=== PATIENT | female | born 1980 | race Caucasian/White ===

== ENCOUNTER 2016-09-21 11:30 | Emergency (ER) | payer MEDICAID ==
[2016-09-21 11:38] VITALS: BP 109/72
[2016-09-21] MEDS ORDERED: NORMAL SALINE 1000 ML 1,000 ML IV ONE (12:06)
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
[2016-09-21] MEDS ORDERED: OXYCODONE-ACETAMINOPHEN 5-325 MG TABLET PO ONE (12:44)
[2016-09-21] MEDS ORDERED: CEFTRIAXONE RTU 1 GM/D5W 50 ML IV ONE (12:44)
[2016-09-21] MEDS ORDERED: AZITHROMYCIN 250 MG TABLET PO ONE (12:44)
[2016-09-21 12:55] LABS: ABSOLUTE EOSINOPHILS # (AUTO) 0.3 10^3/uL (0.0-0.6); ABSOLUTE LYMPHOCYTES (AUTO) 1.5 10^3/uL (0.5-4.7); ABSOLUTE MONOCYTES (AUTO) 0.6 10^3/uL (0.1-1.4); ABSOLUTE NEUT (AUTO) 5.7 10^3/uL (1.7-8.2); BASOPHILS % (AUTO) 0.5 % (0-2); EOSINOPHILS % (AUTO) 3.3 % (0-6); HEMATOCRIT 36.8 % (36.0-47.0); HEMOGLOBIN 12.1 g/dL (12.0-15.5); HGB HCT DIFFERENCE -0.5; LYMPHOCYTES % (AUTO) 18.9 % (13-45); MEAN CORPUSCULAR HEMOGLOBIN 30.1 pg (27.0-33.4); MEAN CORPUSCULAR HGB CONC 32.8 g/dL (32.0-36.0); MEAN CORPUSCULAR VOLUME 92 fl (80-97); RED BLOOD COUNT 4.01 10^6/uL (3.72-5.28); RED CELL DISTRIBUTION WIDTH 13.3 % (11.5-14.0); SEGMENTED NEUTROPHILS % (AUTO) 70.3 % (42-78); WHITE BLOOD COUNT 8.1 10^3/uL (4.0-10.5)
[2016-09-21 13:11] LABS: APPEARANCE,URINE TURBID; BILIRUBIN,URINE NEGATIVE (NEGATIVE); GLUCOSE, URINE NEGATIVE (NEGATIVE); KETONES,URINE NEGATIVE (NEGATIVE); LEUKOCYTE ESTERASE,URINE LARGE (NEGATIVE); NITRITE,URINE POSITIVE (NEGATIVE); PROTEIN,URINE 30 mg/dL (NEGATIVE); URINE SPECIFIC GRAVITY 1.014
[2016-09-21 13:12] LABS: ALANINE AMINOTRANSFERASE 58 U/L (9-52); ALBUMIN 3.6 g/dL (3.5-5.0); ALKALINE PHOSPHATASE 79 U/L (38-126); ANION GAP 11 (5-19); ASPARTATE AMINO TRANSFERASE 62 U/L (14-36); BILIRUBIN,DIRECT 0.3 mg/dL (0.0-0.4); BILIRUBIN,TOTAL 0.3 mg/dL (0.2-1.3); BLOOD UREA NITROGEN 10 mg/dL (7-20); CALCIUM 9.2 mg/dL (8.4-10.2); CARBON DIOXIDE 25 mmol/L (22-30); CHLORIDE 107 mmol/L (98-107); CREATININE RESULT 0.72 mg/dL (0.52-1.25); GLUCOSE 94 mg/dL (75-110); POTASSIUM 4.2 mmol/L (3.6-5.0); SODIUM 142.9 mmol/L (137-145); TOTAL PROTEIN 6.2 g/dL (6.3-8.2)
[2016-09-21 14:21] LABS: CHLAM PCR NOT DETECTED (NOT DETECT)
[2016-09-21] MEDS ORDERED: PHENAZOPYRIDINE HCL 200 MG TABLET PO ONE (14:25)
[2016-09-21] MEDS ORDERED: SULFAMETHOXAZOLE/TRIMETHOPRIM 800-160 MG TABLET PO ONE (14:25)
== END 2016-09-21 15:00 | disposition home or self-care (01) ==
LOC: ER 11:30
DX: N39.0 Urinary tract infection, site not specified (principal); N89.8 Other specified noninflammatory disorders of vagina; M54.5 Low back pain; R30.0 Dysuria; F17.200 Nicotine dependence, unspecified, uncomplicated
CPT/HCPCS: 99283; 96374; 36415; 87040; 87086; 87210; 85025; 87088; 80053; 81001; 87186; 87491; 87591; Q0144; J3490 ×2; J7030; J0696

== ENCOUNTER 2016-10-05 17:09 | Emergency (ER) | payer MEDICAID ==
[2016-10-05] MEDS ORDERED: KETOROLAC TROMETHAMINE 60 MG/2 ML SDV IM ONE (19:41)
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
[2016-10-05] MEDS ORDERED: PROMETHAZINE HCL 25 MG TABLET PO ONE (19:47)
[2016-10-05 20:14] LABS: ABSOLUTE BASOPHILS # (AUTO) 0.1 10^3/uL (0.0-0.2); ABSOLUTE EOSINOPHILS # (AUTO) 0.4 10^3/uL (0.0-0.6); ABSOLUTE LYMPHOCYTES (AUTO) 2.1 10^3/uL (0.5-4.7); ABSOLUTE MONOCYTES (AUTO) 0.5 10^3/uL (0.1-1.4); ABSOLUTE NEUT (AUTO) 6.8 10^3/uL (1.7-8.2); BASOPHILS % (AUTO) 0.8 % (0-2); EOSINOPHILS % (AUTO) 3.8 % (0-6); HEMATOCRIT 42.1 % (36.0-47.0); HEMOGLOBIN 13.5 g/dL (12.0-15.5); HGB HCT DIFFERENCE -1.6; LYMPHOCYTES % (AUTO) 21.3 % (13-45); MEAN CORPUSCULAR HEMOGLOBIN 29.9 pg (27.0-33.4); MEAN CORPUSCULAR VOLUME 94 fl (80-97); MONOCYTES % (AUTO) 5.1 % (3-13); RED CELL DISTRIBUTION WIDTH 13.3 % (11.5-14.0); WHITE BLOOD COUNT 9.9 10^3/uL (4.0-10.5)
[2016-10-05 20:19] LABS: APPEARANCE,URINE SLIGHTLY-CLOUDY; BILIRUBIN,URINE NEGATIVE (NEGATIVE); GLUCOSE, URINE NEGATIVE (NEGATIVE); KETONES,URINE NEGATIVE (NEGATIVE); LEUKOCYTE ESTERASE,URINE SMALL (NEGATIVE); NITRITE,URINE POSITIVE (NEGATIVE); PROTEIN,URINE NEGATIVE (NEGATIVE); URINE SPECIFIC GRAVITY 1.005; UROBILINOGEN,URINE NEGATIVE mg/dL (<2.0)
[2016-10-05 20:30] LABS: ALANINE AMINOTRANSFERASE 36 U/L (9-52); ALBUMIN 4.5 g/dL (3.5-5.0); ALKALINE PHOSPHATASE 66 U/L (38-126); ANION GAP 10 (5-19); ASPARTATE AMINO TRANSFERASE 27 U/L (14-36); BILIRUBIN,DIRECT 0.3 mg/dL (0.0-0.4); BILIRUBIN,TOTAL 0.6 mg/dL (0.2-1.3); BLOOD UREA NITROGEN 10 mg/dL (7-20); CALCIUM 9.7 mg/dL (8.4-10.2); CARBON DIOXIDE 27 mmol/L (22-30); CHLORIDE 103 mmol/L (98-107); CREATININE RESULT 0.76 mg/dL (0.52-1.25); GLUCOSE 80 mg/dL (75-110); LIPASE 138.5 U/L (23-300); POTASSIUM 3.9 mmol/L (3.6-5.0); TOTAL PROTEIN 7.5 g/dL (6.3-8.2)
--- NOTE | 2016-10-05 21:23 | RADIOLOGY REPORT (SQ) ---
EXAM DESCRIPTION: U/S NON-OB PELVIS W/O DOP COMPLETED DATE/TIME: 10/05/2016 9:10 pm REASON FOR STUDY: LLQ pain, Hx ovarian cyst COMPARISON: None. TECHNIQUE: Dynamic and static grayscale images acquired of the pelvis via transabdominal approach an d recorded on PACS. Additional selected color Doppler and spectral images recorded. LIMITATIONS: None. FINDINGS: UTERUS: Surgically absent. RIGHT OVARY: Surgically absent. LEFT OVARY: No abnormal masses. Incidental note is made of a dominant follicle. LEFT OVARY DOPPLER: Normal arterial vascular flow without evidence for torsion. FREE FLUID: None noted. OTHER: No other significant finding. MEASUREMENTS: LEFT OVARY: 3.7 x 2.3 x 3.8 cm IMPRESSION: Status post hysterectomy and right oophorectomy. Normal sonographic appearance of the l eft ovary. TECHNICAL DOCUMENTATION: JOB ID: [id number] [employer]- All Rights Reserved
[2016-10-05] MEDS ORDERED: CEPHALEXIN 500 MG CAPSULE PO ONE (22:01)
[2016-10-05] MEDS ORDERED: OXYCODONE-ACETAMINOPHEN 5-325 MG TABLET PO ONE (22:01)
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
[2016-10-05 23:07] VITALS: BP 102/63
== END 2016-10-05 22:28 | disposition home or self-care (01) ==
LOC: ER 17:09
DX: R10.2 Pelvic and perineal pain (principal); R10.30 Lower abdominal pain, unspecified; F17.200 Nicotine dependence, unspecified, uncomplicated; Z88.6 Allergy status to analgesic agent; Z88.0 Allergy status to penicillin; Z90.710 Acquired absence of both cervix and uterus
CPT/HCPCS: 99284; 96372; 36415; 87086; 83690; 85025; 87088; 80053; 81001; 87186; 76856; J1885; J3490

== ENCOUNTER 2016-10-12 22:23 | Inpatient (IN) | payer MEDICAID ==
[2016-10-12] MEDS ORDERED: NORMAL SALINE 500 ML IV ONE (22:30)
[2016-10-12] MEDS ORDERED: ONDANSETRON HCL INJ/PF 4 MG/2 ML SDV IV ONE (22:47)
[2016-10-12] MEDS ORDERED: NORMAL SALINE 1000 ML 1,000 ML IV ONE (22:47)
[2016-10-12] MEDS ORDERED: ACETAMINOPHEN 325 MG TABLET PO ONE (22:47)
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
[2016-10-13 00:22] LABS: ABSOLUTE EOSINOPHILS # (AUTO) 0.2 10^3/uL (0.0-0.6); ABSOLUTE LYMPHOCYTES (AUTO) 1.4 10^3/uL (0.5-4.7); ABSOLUTE MONOCYTES (AUTO) 0.6 10^3/uL (0.1-1.4); ABSOLUTE NEUT (AUTO) 9.8 10^3/uL (1.7-8.2); BASOPHILS % (AUTO) 0.3 % (0-2); HEMATOCRIT 42.8 % (36.0-47.0); HEMOGLOBIN 13.8 g/dL (12.0-15.5); HGB HCT DIFFERENCE -1.4; LYMPHOCYTES % (AUTO) 11.7 % (13-45); MEAN CORPUSCULAR HEMOGLOBIN 29.8 pg (27.0-33.4); MEAN CORPUSCULAR HGB CONC 32.3 g/dL (32.0-36.0); MEAN CORPUSCULAR VOLUME 92 fl (80-97); MONOCYTES % (AUTO) 4.7 % (3-13); RED BLOOD COUNT 4.64 10^6/uL (3.72-5.28); RED CELL DISTRIBUTION WIDTH 12.7 % (11.5-14.0); SEGMENTED NEUTROPHILS % (AUTO) 81.3 % (42-78); WHITE BLOOD COUNT 12.1 10^3/uL (4.0-10.5)
[2016-10-13 00:30] LABS: AMORPHOUS SEDIMENT,URINE TRACE /HPF; BILIRUBIN,URINE NEGATIVE (NEGATIVE); GLUCOSE, URINE NEGATIVE (NEGATIVE); KETONES,URINE TRACE mg/dL (NEGATIVE); LEUKOCYTE ESTERASE,URINE NEGATIVE (NEGATIVE); NITRITE,URINE POSITIVE (NEGATIVE); PROTEIN,URINE NEGATIVE (NEGATIVE)
[2016-10-13 00:31] LABS: APPEARANCE,URINE SLIGHTLY-CLOUDY
[2016-10-13 00:38] LABS: ALANINE AMINOTRANSFERASE 27 U/L (9-52); ALBUMIN 4.9 g/dL (3.5-5.0); ALKALINE PHOSPHATASE 70 U/L (38-126); ANION GAP 14 (5-19); ASPARTATE AMINO TRANSFERASE 18 U/L (14-36); BILIRUBIN,DIRECT 0.4 mg/dL (0.0-0.4); BILIRUBIN,TOTAL 0.6 mg/dL (0.2-1.3); BLOOD UREA NITROGEN 15 mg/dL (7-20); CARBON DIOXIDE 24 mmol/L (22-30); CHLORIDE 102 mmol/L (98-107); CREATININE RESULT 0.85 mg/dL (0.52-1.25); GLUCOSE 96 mg/dL (75-110); LIPASE 117.2 U/L (23-300); POTASSIUM 4.3 mmol/L (3.6-5.0); SODIUM 139.8 mmol/L (137-145); TOTAL PROTEIN 8.1 g/dL (6.3-8.2)
[2016-10-13] MEDS ORDERED: PROMETHAZINE HCL INJ 50 MG/1 ML VIAL IM ONE (01:33)
[2016-10-13] MEDS ORDERED: PROMETHAZINE HCL INJ 25 MG/1 ML VIAL ONE (01:45)
[2016-10-13] MEDS ORDERED: METOCLOPRAMIDE HCL INJ/PF 10 MG/2 ML SDV IV ONE (02:22)
--- NOTE | 2016-10-13 03:32 | RADIOLOGY REPORT (SQ) ---
EXAM DESCRIPTION: ACUTE ABDOMEN SERIES COMPLETED DATE/TIME: 10/13/2016 3:16 am REASON FOR STUDY: vomiting COMPARISON: 02/29/2016. NUMBER OF VIEWS: Three views. TECHNIQUE: Frontal chest, supine abdomen and upright/decubitus abdomen radiographic images acquired. LIMITATIONS: None. FINDINGS: CHEST: Lungs clear of infiltrates. FREE AIR: None. No abnormal gas collections. BOWEL GAS PATTERN: 2 loops of dilated small bowel in the right paracentral upper abdomen measuring up to 3.7 cm in diameter with air-fluid levels. Moderate colonic stool retention. CALCIFICATIONS: No suspicious calcifications. HARDWARE: None in the abdomen. SOFT TISSUES: No gross mass or suggestion of organomegaly. BONES: No acute fracture. No worrisome bone lesions. OTHER: No other significant finding. IMPRESSION: 2 loops of dilated small bowel measuring up to 3.7 cm in diameter may indicate ileus or low-grade/early obstruction. Moderate colonic stool retention. No acute cardiopulmonary findings. TECHNICAL DOCUMENTATION: JOB ID: [id number] [employer]- All Rights Reserved
--- NOTE | 2016-10-13 04:46 | RADIOLOGY REPORT (SQ) ---
EXAM DESCRIPTION: CT ABD/PELVIS WITH IV ONLY COMPLETED DATE/TIME: 10/13/2016 4:15 am REASON FOR STUDY: vomiting COMPARISON: None. TECHNIQUE: CT scan of the abdomen and pelvis performed using helical scanning technique with dynamic intravenous contrast injection. No oral contrast. Images reviewed with lung, soft tissue, and bone windows. Reconstructed coronal and sagittal MPR images reviewed. Delayed images for evaluation of the urinary system also acquired. All images stored on PACS. All CT scanners at this facility use dose modulation, iterative reconstruction, and/or weight based d osing when appropriate to reduce radiation dose to as low as reasonably achievable (ALARA). [facility]: Dose Right [facility]: CareDose [facility]: Dose Right [facility]: Teradose 4D [facility]: Cutting Edge Wheels CONTRAST TYPE AND DOSE: contrast/concentration: Isovue 370.00 mg/ml; Total Contrast Delivered: 58.0 ml; Total Saline Delivered: 65.0 ml RENAL FUNCTION: Creatinine 0.9 RADIATION DOSE: Up-to-date CT equipment and radiation dose reduction techniques were employed. CTDIv ol: 5.0 - 5.8 mGy. DLP: 555 mGy-cm.. LIMITATIONS: None. FINDINGS: LOWER CHEST: No significant findings. No nodules or infiltrates. LIVER: Normal size. No masses. No dilated ducts. SPLEEN: Normal size. No focal lesions. PANCREAS: No masses. No significant calcifications. No adjacent inflammation or peripancreatic fluid collections. Pancreatic duct not dilated. GALLBLADDER: No identified stones by CT criteria. No inflammatory changes to suggest cholecystitis. ADRENAL GLANDS: No significant masses or asymmetry. RIGHT KIDNEY AND URETER: Small to moderate scar is of the right kidney. 0.3 cm stone. LEFT KIDNEY AND URETER: No solid masses. No significant calcifications. No hydronephrosis or hydr oureter. AORTA AND VESSELS: No aneurysm. No dissection. Renal arteries, SMA, celiac without stenosis. RETROPERITONEUM: No retroperitoneal adenopathy, hemorrhage or masses. BOWEL AND PERITONEAL CAVITY: Moderate fluid distention of the small bowel, predominately jejunal, wit h air-fluid levels and diameter measuring up to 3.3 cm throughout the mid and lower abdomen. The Sma ll free pelvic fluid. APPENDIX: Normal. PELVIS: Small free pelvic fluid. Normal bladder. ABDOMINAL WALL: No masses. No hernias. BONES: No significant or acute findings. OTHER: No other significant finding. IMPRESSION: Moderate dilation of small bowel with air-fluid levels and small free pelvic fluid which may indicate small bowel obstruction and/or ileus. TECHNICAL DOCUMENTATION: JOB ID: [id number] Quality ID # [id number]: Final reports with documentation of one or more dose reduction techniques (e.g., Au tomated exposure control, adjustment of the mA and/or kV according to patient size, use of iterative reconstruction technique) 2010 [employer]- All Rights Reserved
[2016-10-13] MEDS ORDERED: GLUCAGON,HUMAN RECOMB 1 MG INJ SUBCUT PRN (09:10)
[2016-10-13] MEDS ORDERED: ONDANSETRON HCL INJ/PF 4 MG/2 ML SDV IV PRN (09:10)
[2016-10-13] MEDS ORDERED: DEXTROSE 40% GEL 15 GM TUBE PO PRN ×2 (09:10)
[2016-10-13] MEDS ORDERED: DEXTROSE 50%-WATER 25 GM/50 ML DISP.SYRIN IV PRN ×2 (09:10)
[2016-10-13] MEDS ORDERED: MORPHINE SULFATE 10 MG/ML INJ IV PRN (09:10)
--- NOTE | 2016-10-13 10:48 | HISTORY AND PHYSICAL E ---
History and Physical NAME: HUSSEIN PLATA : 1980 AGE: 36Y ADMITTED: 10/13/2016 ROOM: 531 REASON FOR ADMISSION: Abdominal pain, nausea and vomiting. HISTORY OF PRESENT ILLNESS: The patient is a 36-year-old female who has a history of multiple intraabdominal surgeries. She now presents with 1-1/2 to 2 days' history of abdominal and then nausea and vomiting bilious material. She had a normal bowel movement yesterday. This is the first time this has occurred. The patient is in the mid abdomen. The patient states the pain was crampy. PAST SURGICAL HISTORY: 1. Hysterectomy. 2. . 3. Face reconstruction. 4. Tonsillectomy. 5. Orthopedic surgery. PAST MEDICAL HISTORY: Depression. ALLERGIES: 1. VICODIN. 2. PENICILLIN. 3. ASPIRIN. MEDICATIONS: 1. Aripiprazole. 2. Cyclobenzaprine. 3. Valium. 4. Prazosin. 5. Promethazine. SOCIAL HISTORY: The patient is single. HABITS: The patient smokes less than a pack of cigarettes a day and is trying to completely quit. She denies any alcohol or drug use. REVIEW OF SYSTEMS: GASTROINTESTINAL: Abdominal pain, nausea and vomiting. PSYCHOLOGICAL: Depression. A 12-point review of systems was obtained with pertinent positives discussed and all others being negative. PHYSICAL EXAMINATION: VITAL SIGNS: Temperature 98.3, pulse 71, blood pressure 105/66. GENERAL: The patient is lying in bed with NG tube in place. She is not complaining of any significant abdominal pain at the current time. HEENT: Eyes nonicteric. NECK: No lymphadenopathy. BACK: Nontender. HEART: Regular. LUNGS: Clear. ABDOMEN: Soft. No significant tenderness, no hernias. EXTREMITIES: No edema or cyanosis. NEUROLOGIC: The patient appears to be neurologically intact without any deficits. PSYCHIATRIC: The patient is coherent, cooperative and appears to answer questions fully. DIAGNOSTIC DATA: CT scan of the abdomen and pelvis shows moderate dilation of small bowel with air fluid levels which may indicate small bowel obstruction or ileus. LABORATORY: White blood cell count of 12, hemoglobin 14, platelets 266. Sodium 140, potassium 4.3, creatinine 0.85. ASSESSMENT: 1. Abdominal pain, nausea and vomiting secondary to probable partial small bowel obstruction. I would recommend medical therapy at this time including IV fluids along with NG tube to low wall suction and n.p.o. 2. History of depression. PLAN: 1. The patient will be admitted to the hospital. 2. N.p.o. 3. IV fluids. 4. Nasogastric tube to low wall suction. DICTATING PHYSICIAN: ADINA WAKEFIELD M.D. [id number] PHY#: [id number] ID: [id number] JOB#: [id number] ACCT: [id number] cc:ADINA WAKEFIELD M.D. >
[2016-10-13] MEDS: FAMOTIDINE INJ/PF 20 MG/2 ML SDV IV SCH ×2 (11:19→21:13)
[2016-10-13] MEDS: ENOXAPARIN SODIUM INJ 40 MG/0.4 ML DISP.SYRIN SUBCUT SCH (11:36)
[2016-10-13] MEDS: MORPHINE SULFATE 10 MG/ML INJ IV PRN ×6 (11:41→23:40)
[2016-10-14] MEDS: POTASSI CL 20 MEQ/NS 1L 1,000 ML IV PRN ×4 (00:20→22:30)
[2016-10-14] MEDS: MORPHINE SULFATE 10 MG/ML INJ IV PRN ×5 (03:45→21:20)
[2016-10-14 06:03] LABS: MEAN CORPUSCULAR VOLUME 93 fl (80-97)
[2016-10-14 06:14] LABS: HEMATOCRIT 35.7 % (36.0-47.0); HGB HCT DIFFERENCE -1.2; MEAN CORPUSCULAR HEMOGLOBIN 30.2 pg (27.0-33.4); MEAN CORPUSCULAR HGB CONC 32.3 g/dL (32.0-36.0); RED BLOOD COUNT 3.82 10^6/uL (3.72-5.28); WHITE BLOOD COUNT 7.6 10^3/uL (4.0-10.5)
[2016-10-14 06:19] LABS: HEMOGLOBIN 11.5 g/dL (12.0-15.5)
[2016-10-14 06:21] LABS: ANION GAP 11 (5-19); BLOOD UREA NITROGEN 11 mg/dL (7-20); CALCIUM 8.2 mg/dL (8.4-10.2); CARBON DIOXIDE 16 mmol/L (22-30); CHLORIDE 114 mmol/L (98-107); CREATININE RESULT 0.66 mg/dL (0.52-1.25); GLUCOSE 46 mg/dL (75-110); POTASSIUM 4.5 mmol/L (3.6-5.0); SODIUM 140.6 mmol/L (137-145)
[2016-10-14] MEDS ORDERED: NORMAL SALINE 1000 ML 1,000 ML IV PRN (10:16)
[2016-10-14] MEDS: FAMOTIDINE INJ/PF 20 MG/2 ML SDV IV SCH ×2 (11:11→21:21)
[2016-10-14] MEDS: ENOXAPARIN SODIUM INJ 40 MG/0.4 ML DISP.SYRIN SUBCUT SCH (11:16)
--- NOTE | 2016-10-14 11:21 | RADIOLOGY REPORT (SQ) ---
EXAM DESCRIPTION: ABDOMEN 2 VIEWS COMPLETED DATE/TIME: 10/14/2016 10:47 am REASON FOR STUDY: small obowel obstruction COMPARISON: Three-way abdomen series 7917 CT abdomen pelvis 10/13/2016 NUMBER OF VIEWS: Two views. TECHNIQUE: Supine and upright radiographic images of the abdomen acquired. LIMITATIONS: None. FINDINGS: FREE AIR: None. No abnormal gas collections. LUNG BASES: Mild bibasilar atelectasis BOWEL GAS PATTERN: There is a nasogastric tube with the tip in the stomach and side port at the GE ju nction region. Stomach is decompressed. Partial decompression of the small bowel loops in the mid e pigastrium since prior CT and abdominal films 10/13/2016. There is a large amount of stool in the ascending colon and proximal descending colon. CALCIFICATIONS: No suspicious calcifications. SOFT TISSUES: Distended urinary bladder filled with IV contrast from prior CT 10/13/2016 HARDWARE: Artifact from belly button ring. Nasogastric tube tip in the stomach fundus, side port at the GE junction BONES: No acute fracture. No worrisome bone lesions. OTHER: No other significant finding. IMPRESSION: Persistent mildly dilated mid epigastric small bowel loops Set Stomach decompressed by a nasogastric tube Large amount of stool in the ascending colon Massively distended urinary bladder TECHNICAL DOCUMENTATION: JOB ID: [id number] [employer]- All Rights Reserved
--- NOTE | 2016-10-14 16:42 | PDOC PROGRESS REPORT ---
Subjective Progress Note for:: 10/14/16 Subjective:: Patient passing flatus, had bowel movement, feels better. No nausea or vomiting. Physical Exam Vital Signs: Temp Pulse Resp BP Pulse Ox 98.4 F 83 17 134/68 H 100 10/14/16 15:39 10/14/16 15:41 10/14/16 15:39 10/14/16 15:41 10/14/16 15:39 Intake & Output 10/13/16 10/14/16 10/15/16 06:59 06:59 06:59 Intake Total 2794 Output Total 2550 Balance 244 Weight 53.9 kg General appearance: PRESENT: no acute distress GI/Abdominal exam: PRESENT: other - Only minimally distended. Results Laboratory Results: 10/14/16 04:56 10/14/16 04:56 10/14/16 10/14/16 04:56 04:56 WBC 7.6 RBC 3.82 Hgb 11.5 L D Hct 35.7 L MCV 93 MCH 30.2 MCHC 32.3 RDW 13.0 Plt Count 132 L Sodium 140.6 Potassium 4.5 Chloride 114 H Carbon Dioxide 16 L Anion Gap 11 BUN 11 Creatinine 0.66 Est GFR ( Amer) > 60 Est GFR (Non-Af Amer) > 60 Glucose 46 L Calcium 8.2 L Impressions: Acute Abdomen Series 10/13/16 02:49 IMPRESSION: 2 loops of dilated small bowel measuring up to 3.7 cm in diameter may indicate ileus or low-grade/early obstruction. Moderate colonic stool retention. No acute cardiopulmonary findings. Abdomen/Pelvis CT 10/13/16 03:59 IMPRESSION: Moderate dilation of small bowel with air-fluid levels and small free pelvic fluid which may indicate small bowel obstruction and/or ileus. Abdomen X-Ray 10/14/16 00:00 IMPRESSION: Persistent mildly dilated mid epigastric small bowel loops Set Stomach decompressed by a nasogastric tube Large amount of stool in the ascending colon Massively distended urinary bladder Assessment & Plan - Diagnosis (1) Small bowel obstruction Plan: Now hospital day 2, clinically and radiographically improved. Plan: 1. We will discontinue nasogastric tube 2. Continue IV fluids 3. May start clear liquids later today.
[2016-10-14] MEDS: LORAZEPAM INJ 2 MG/1 ML VIAL IV PRN (23:51)
[2016-10-15] MEDS: ONDANSETRON HCL INJ/PF 4 MG/2 ML SDV IV PRN ×3 (00:14→12:58)
[2016-10-15] MEDS: POTASSI CL 20 MEQ/NS 1L 1,000 ML IV PRN ×2 (05:50→12:59)
[2016-10-15] MEDS ORDERED: GLUCAGON,HUMAN RECOMB 1 MG INJ SUBCUT PRN (06:18)
[2016-10-15] MEDS ORDERED: DEXTROSE 40% GEL 15 GM TUBE PO PRN ×2 (06:18)
[2016-10-15] MEDS ORDERED: DEXTROSE 50%-WATER 25 GM/50 ML DISP.SYRIN IV PRN ×2 (06:18)
[2016-10-15 06:31] LABS: HEMATOCRIT 34.3 % (36.0-47.0); HEMOGLOBIN 11.3 g/dL (12.0-15.5); HGB HCT DIFFERENCE -0.4; MEAN CORPUSCULAR HEMOGLOBIN 30.4 pg (27.0-33.4); MEAN CORPUSCULAR HGB CONC 32.9 g/dL (32.0-36.0); MEAN CORPUSCULAR VOLUME 93 fl (80-97); RED BLOOD COUNT 3.71 10^6/uL (3.72-5.28); RED CELL DISTRIBUTION WIDTH 12.9 % (11.5-14.0)
[2016-10-15 06:54] LABS: ANION GAP 11 (5-19); BLOOD UREA NITROGEN 5 mg/dL (7-20); CALCIUM 8.1 mg/dL (8.4-10.2); CARBON DIOXIDE 14 mmol/L (22-30); CHLORIDE 112 mmol/L (98-107); CREATININE RESULT 0.59 mg/dL (0.52-1.25); GLUCOSE 82 mg/dL (75-110); POTASSIUM 4.7 mmol/L (3.6-5.0)
[2016-10-15] MEDS: LORAZEPAM INJ 2 MG/1 ML VIAL IV PRN (09:44)
[2016-10-15] MEDS: FAMOTIDINE INJ/PF 20 MG/2 ML SDV IV SCH ×2 (09:44→21:37)
[2016-10-15] MEDS: MORPHINE SULFATE 10 MG/ML INJ IV PRN ×2 (09:44→12:57)
[2016-10-15] MEDS: ENOXAPARIN SODIUM INJ 40 MG/0.4 ML DISP.SYRIN SUBCUT SCH (11:46)
[2016-10-15] MEDS ORDERED: TRAMADOL HCL 50 MG TABLET PO PRN (15:04)
--- NOTE | 2016-10-15 15:58 | PDOC PROGRESS REPORT ---
Subjective Progress Note for:: 10/15/16 Subjective:: Patient wants to eat food. Physical Exam Vital Signs: Temp Pulse Resp BP Pulse Ox 99.7 F 108 H 16 100/53 L 99 10/15/16 11:16 10/15/16 11:16 10/15/16 11:16 10/15/16 11:16 10/15/16 11:16 Intake & Output 10/14/16 10/15/16 10/16/16 06:59 06:59 06:59 Intake Total 2794 4803 Output Total 2550 2300 Balance 244 2503 Weight 53.9 kg 53.9 kg General appearance: PRESENT: no acute distress Respiratory exam: PRESENT: clear to auscultation ledy Cardiovascular exam: PRESENT: RRR GI/Abdominal exam: PRESENT: normal bowel sounds, soft - Full. ABSENT: distended , guarding, mass, tenderness Results Laboratory Results: 10/15/16 05:47 10/15/16 05:47 10/15/16 10/15/16 05:47 05:47 WBC 8.0 RBC 3.71 L Hgb 11.3 L Hct 34.3 L MCV 93 MCH 30.4 MCHC 32.9 RDW 12.9 Plt Count 130 L Sodium 137.0 Potassium 4.7 Chloride 112 H Carbon Dioxide 14 L Anion Gap 11 BUN 5 L Creatinine 0.59 Est GFR ( Amer) > 60 Est GFR (Non-Af Amer) > 60 Glucose 82 Calcium 8.1 L 10/13/16 15:38 Nasophary (Mrsa Only) MRSA Surveillance Culture - Final NO MRSA RECOVERED Impressions: Acute Abdomen Series 10/13/16 02:49 IMPRESSION: 2 loops of dilated small bowel measuring up to 3.7 cm in diameter may indicate ileus or low-grade/early obstruction. Moderate colonic stool retention. No acute cardiopulmonary findings. Abdomen/Pelvis CT 10/13/16 03:59 IMPRESSION: Moderate dilation of small bowel with air-fluid levels and small free pelvic fluid which may indicate small bowel obstruction and/or ileus. Abdomen X-Ray 10/14/16 00:00 IMPRESSION: Persistent mildly dilated mid epigastric small bowel loops Set Stomach decompressed by a nasogastric tube Large amount of stool in the ascending colon Massively distended urinary bladder Assessment & Plan - Diagnosis (1) Small bowel obstruction Is this a current diagnosis for this admission?: YesPlan: The patient's small bowel obstruction is resolved. We will start the patient on clear liquid diet, and advance accordingly. We will stop her parenteral analgesics, and start her on tramadol.
[2016-10-15] MEDS: TRAMADOL HCL 50 MG TABLET PO PRN (17:39)
[2016-10-16] MEDS: LORAZEPAM INJ 2 MG/1 ML VIAL IV PRN (00:47)
[2016-10-16] MEDS: POTASSI CL 20 MEQ/NS 1L 1,000 ML IV PRN ×2 (02:32→20:51)
[2016-10-16] MEDS: ONDANSETRON HCL INJ/PF 4 MG/2 ML SDV IV PRN ×3 (03:46→20:49)
[2016-10-16 05:38] LABS: HEMATOCRIT 36.1 % (36.0-47.0); HEMOGLOBIN 11.8 g/dL (12.0-15.5); HGB HCT DIFFERENCE -0.7; MEAN CORPUSCULAR HEMOGLOBIN 30.2 pg (27.0-33.4); MEAN CORPUSCULAR HGB CONC 32.7 g/dL (32.0-36.0); MEAN CORPUSCULAR VOLUME 93 fl (80-97); RED BLOOD COUNT 3.91 10^6/uL (3.72-5.28); WHITE BLOOD COUNT 7.5 10^3/uL (4.0-10.5)
[2016-10-16 06:04] LABS: ANION GAP 11 (5-19); BLOOD UREA NITROGEN 4 mg/dL (7-20); CARBON DIOXIDE 19 mmol/L (22-30); CHLORIDE 110 mmol/L (98-107); CREATININE RESULT 0.63 mg/dL (0.52-1.25); GLUCOSE 112 mg/dL (75-110); POTASSIUM 4.4 mmol/L (3.6-5.0); SODIUM 140.4 mmol/L (137-145)
[2016-10-16] MEDS: ENOXAPARIN SODIUM INJ 40 MG/0.4 ML DISP.SYRIN SUBCUT SCH (11:19)
[2016-10-16] MEDS: FAMOTIDINE INJ/PF 20 MG/2 ML SDV IV SCH ×2 (11:19→22:02)
[2016-10-16] MEDS: TRAMADOL HCL 50 MG TABLET PO PRN (12:09)
[2016-10-16] MEDS ORDERED: HYDROMORPHONE HCL 2 MG TABLET ONE (20:47)
[2016-10-16] MEDS ORDERED: HYDROMORPHONE HCL 2 MG TABLET PO PRN (20:49)
--- NOTE | 2016-10-16 22:17 | PDOC PROGRESS REPORT ---
Subjective Progress Note for:: 10/16/16 Subjective:: Patient is without complaints Physical Exam Vital Signs: Temp Pulse Resp BP Pulse Ox 99.9 F 60 15 105/64 100 10/16/16 15:57 10/16/16 15:57 10/16/16 15:57 10/16/16 15:57 10/16/16 15:57 Intake & Output 10/15/16 10/16/16 10/17/16 06:59 06:59 06:59 Intake Total 4803 2170 250 Output Total 2300 3700 400 Balance 2503 -1530 -150 Weight 53.9 kg 53.9 kg GI/Abdominal exam: PRESENT: normal bowel sounds, soft. ABSENT: distended, guarding, tenderness Results Laboratory Results: 10/16/16 04:58 10/16/16 04:58 10/16/16 10/16/16 04:58 04:58 WBC 7.5 RBC 3.91 Hgb 11.8 L Hct 36.1 MCV 93 MCH 30.2 MCHC 32.7 RDW 13.0 Plt Count 143 L Sodium 140.4 Potassium 4.4 Chloride 110 H Carbon Dioxide 19 L Anion Gap 11 BUN 4 L Creatinine 0.63 Est GFR ( Amer) > 60 Est GFR (Non-Af Amer) > 60 Glucose 112 H Calcium 9.0 Impressions: Acute Abdomen Series 10/13/16 02:49 IMPRESSION: 2 loops of dilated small bowel measuring up to 3.7 cm in diameter may indicate ileus or low-grade/early obstruction. Moderate colonic stool retention. No acute cardiopulmonary findings. Abdomen/Pelvis CT 10/13/16 03:59 IMPRESSION: Moderate dilation of small bowel with air-fluid levels and small free pelvic fluid which may indicate small bowel obstruction and/or ileus. Abdomen X-Ray 10/14/16 00:00 IMPRESSION: Persistent mildly dilated mid epigastric small bowel loops Set Stomach decompressed by a nasogastric tube Large amount of stool in the ascending colon Massively distended urinary bladder Assessment & Plan - Diagnosis (1) Small bowel obstruction Is this a current diagnosis for this admission?: Yes - Plan Summary Plan Summary: Discharge planning for a.m. on Dilaudid tablets 1 mg every 4 as needed
[2016-10-17] MEDS: ONDANSETRON HCL INJ/PF 4 MG/2 ML SDV IV PRN ×3 (04:15→16:33)
[2016-10-17 06:16] LABS: HEMOGLOBIN 11.3 g/dL (12.0-15.5); HGB HCT DIFFERENCE -0.1; MEAN CORPUSCULAR HEMOGLOBIN 30.4 pg (27.0-33.4); MEAN CORPUSCULAR HGB CONC 33.4 g/dL (32.0-36.0); MEAN CORPUSCULAR VOLUME 91 fl (80-97); RED BLOOD COUNT 3.73 10^6/uL (3.72-5.28); RED CELL DISTRIBUTION WIDTH 12.8 % (11.5-14.0); WHITE BLOOD COUNT 8.3 10^3/uL (4.0-10.5)
[2016-10-17 06:33] LABS: ANION GAP 9 (5-19); BLOOD UREA NITROGEN 5 mg/dL (7-20); CALCIUM 8.5 mg/dL (8.4-10.2); CARBON DIOXIDE 23 mmol/L (22-30); CHLORIDE 109 mmol/L (98-107); CREATININE RESULT 0.69 mg/dL (0.52-1.25); GLUCOSE 87 mg/dL (75-110); POTASSIUM 4.3 mmol/L (3.6-5.0); SODIUM 140.5 mmol/L (137-145)
[2016-10-17] MEDS: POTASSI CL 20 MEQ/NS 1L 1,000 ML IV PRN (06:54)
--- NOTE | 2016-10-17 08:07 | PDOC PROGRESS REPORT ---
Subjective Progress Note for:: 10/17/16 Subjective:: Feels okay other than she is having nausea and vomiting. Had a small bowel movement yesterday. Physical Exam Vital Signs: Temp Pulse Resp BP Pulse Ox 99.3 F 52 L 20 130/75 H 100 10/17/16 04:00 10/17/16 04:07 10/17/16 00:01 10/17/16 04:07 10/17/16 04:07 Intake & Output 10/16/16 10/17/16 10/18/16 06:59 06:59 06:59 Intake Total 2170 250 Output Total 3700 400 Balance -1530 -150 Weight 53.9 kg General appearance: PRESENT: no acute distress, cooperative Respiratory exam: PRESENT: clear to auscultation ledy Cardiovascular exam: PRESENT: RRR GI/Abdominal exam: PRESENT: other - Soft, nondistended, nontender to palpation. Results Laboratory Results: 10/17/16 05:41 10/17/16 05:41 10/17/16 10/17/16 05:41 05:41 WBC 8.3 RBC 3.73 Hgb 11.3 L Hct 34.0 L MCV 91 MCH 30.4 MCHC 33.4 RDW 12.8 Plt Count 150 Sodium 140.5 Potassium 4.3 Chloride 109 H Carbon Dioxide 23 Anion Gap 9 BUN 5 L Creatinine 0.69 Est GFR ( Amer) > 60 Est GFR (Non-Af Amer) > 60 Glucose 87 Calcium 8.5 Impressions: Acute Abdomen Series 10/13/16 02:49 IMPRESSION: 2 loops of dilated small bowel measuring up to 3.7 cm in diameter may indicate ileus or low-grade/early obstruction. Moderate colonic stool retention. No acute cardiopulmonary findings. Abdomen/Pelvis CT 10/13/16 03:59 IMPRESSION: Moderate dilation of small bowel with air-fluid levels and small free pelvic fluid which may indicate small bowel obstruction and/or ileus. Abdomen X-Ray 10/14/16 00:00 IMPRESSION: Persistent mildly dilated mid epigastric small bowel loops Set Stomach decompressed by a nasogastric tube Large amount of stool in the ascending colon Massively distended urinary bladder Assessment & Plan - Diagnosis (1) Small bowel obstruction Is this a current diagnosis for this admission?: YesPlan: Patient with recurrent nausea and vomiting. Will place NG tube. Will check KUB. Give enemas to try to clear out her colon.
[2016-10-17] MEDS ORDERED: NORMAL SALINE 1000 ML 1,000 ML IV PRN (08:09)
[2016-10-17] MEDS ORDERED: PHARMACY COMMUNICATION ORDER MC NR (08:15)
--- NOTE | 2016-10-17 10:27 | RADIOLOGY REPORT (SQ) ---
EXAM DESCRIPTION: ABDOMEN 2 VIEWS COMPLETED DATE/TIME: 10/17/2016 10:08 am REASON FOR STUDY: Nausea and vomiting COMPARISON: CT abdomen pelvis 10/13/2016 Three-way abdomen series [id number], 10/13/2016, 10/14/2016 NUMBER OF VIEWS: Two views. TECHNIQUE: Supine and upright radiographic images of the abdomen acquired. LIMITATIONS: None. FINDINGS: FREE AIR: None. No abnormal gas collections. LUNG BASES: Clear. BOWEL GAS PATTERN: Large amount of stool throughout the colon. Persistent dilated mid abdominal smal l bowel loops. Findings are worrisome for partial small bowel obstruction. Stomach decompressed. CALCIFICATIONS: No suspicious calcifications. SOFT TISSUES: No gross mass or suggestion of organomegaly. HARDWARE: None in the abdomen. BONES: No acute fracture. No worrisome bone lesions. OTHER: No other significant finding. IMPRESSION: Large amount of stool throughout the colon. Persistent air-fluid levels in dilated mid epigastric small bowel loops. Findings worrisome for pers istent small bowel obstruction. Consider follow-up CT scanning with oral contrast or a small-bowel f ollow-through study. TECHNICAL DOCUMENTATION: JOB ID: [id number] [employer]- All Rights Reserved
[2016-10-17] MEDS: ENOXAPARIN SODIUM INJ 40 MG/0.4 ML DISP.SYRIN SUBCUT SCH (10:55)
[2016-10-17] MEDS: TRAMADOL HCL 50 MG TABLET PO PRN (11:11)
[2016-10-17] MEDS: FAMOTIDINE INJ/PF 20 MG/2 ML SDV IV SCH ×2 (11:12→21:28)
[2016-10-17] MEDS ORDERED: NA PHOS,M-B/NA PHOS,DI-BA (ADULT) 133 ML ENEMA PR ONE ×2 (11:31→12:00)
--- NOTE | 2016-10-17 16:03 | RADIOLOGY REPORT (SQ) ---
EXAM DESCRIPTION: UPPER GI/SM BOWEL COMPLETED DATE/TIME: 10/17/2016 3:17 pm REASON FOR STUDY: SBO COMPARISON: None. TECHNIQUE: Under fluoroscopic guidance, patient ingested thin liquid barium. Fluoroscopic spot imag es and routine radiographic images acquired and stored on PACS. Following evaluation of esophagus and stomach, additional barium administered with serial delayed abd ominal radiographs until colonic identification. Fluoroscopic images recorded of the terminal ileum. 12 MM BARIUM TABLET GIVEN: No. FLUOROSCOPY TIME: 39 seconds 16 series of digital images saved to PACS. KUB image immediately after the upper GI, 15 minutes afte r upper GI, and 2 hours after upper GI LIMITATIONS: None. FINDINGS: NEUROMUSCULAR COORDINATION OF SWALLOW: Normal. No aspiration. ESOPHAGEAL MOTILITY: Normal peristalsis. No esophageal spasm. ESOPHAGEAL MUCOSA: Normal mucosa without masses or ulceration. GASTRO-ESOPHAGEAL JUNCTION: No hiatal hernia or reflux. STOMACH: Normal without masses or ulcerations. GASTRIC OUTLET: No delay in emptying. Normal pylorus. DUODENAL BULB: Normal distention. No spasm or ulceration. DUODENUM: Mucosa normal. No extrinsic masses or malrotation. PROXIMAL SMALL BOWEL: Very subtle contrast moved into the proximal small bowel on the immediate post upper GI images. There are dilated mid epigastric small bowel loops present JEJUNUM: Not well-visualized ILEUM: Not well-visualized TERMINAL ILEUM AND ILEO-CECAL VALVE: Not visualized PROXIMAL COLON: Full of stool. No barium reached the distal ileum on the 2 hour delayed images NON-GI TRACT STRUCTURES: No significant finding. OTHER: Please note that the patient refused further imaging after the upper GI portion of the exam. Only 15 minutes films were obtained followed by 2 hour delay images. In the interval between these 2 films, patient vomited all of the contrast. The KUB exams before during and after the upper GI show large amount of stool throughout the colon, and persistent dilated mid epigastric small bowel loops. This report was called to Dr. Sanford IMPRESSION: Unremarkable upper GI. On all of the images, there is a large amount of stool throughout the colon, and dilated mid epigastr ic small bowel loops which are similar compared to studies dating back to 10/13/2016. COMMENT: Quality ID [id number]: Final reports for procedures using fluoroscopy that document radiation exp osure indices, or exposure time and number of fluorographic images (if radiation exposure indices are not available) TECHNICAL DOCUMENTATION: JOB ID: [id number] [employer]- All Rights Reserved
--- NOTE | 2016-10-17 16:17 | PDOC PROGRESS REPORT ---
Subjective Progress Note for:: 10/17/16 Subjective:: Patient threw up her contrast. Complaining of some mid abdominal pain. Physical Exam Vital Signs: Temp Pulse Resp BP Pulse Ox 99.2 F 56 L 14 148/80 H 100 10/17/16 15:13 10/17/16 15:13 10/17/16 15:13 10/17/16 15:13 10/17/16 15:13 Intake & Output 10/16/16 10/17/16 10/18/16 06:59 06:59 06:59 Intake Total 2170 250 0 Output Total 3700 400 Balance -1530 -150 0 Weight 53.9 kg General appearance: PRESENT: no acute distress, cooperative Cardiovascular exam: PRESENT: RRR GI/Abdominal exam: PRESENT: other - Soft, nondistended, mild mid abdominal tenderness with no peritoneal signs. Results Laboratory Results: 10/17/16 05:41 10/17/16 05:41 10/17/16 10/17/16 05:41 05:41 WBC 8.3 RBC 3.73 Hgb 11.3 L Hct 34.0 L MCV 91 MCH 30.4 MCHC 33.4 RDW 12.8 Plt Count 150 Sodium 140.5 Potassium 4.3 Chloride 109 H Carbon Dioxide 23 Anion Gap 9 BUN 5 L Creatinine 0.69 Est GFR ( Amer) > 60 Est GFR (Non-Af Amer) > 60 Glucose 87 Calcium 8.5 Impressions: Acute Abdomen Series 10/13/16 02:49 IMPRESSION: 2 loops of dilated small bowel measuring up to 3.7 cm in diameter may indicate ileus or low-grade/early obstruction. Moderate colonic stool retention. No acute cardiopulmonary findings. Abdomen/Pelvis CT 10/13/16 03:59 IMPRESSION: Moderate dilation of small bowel with air-fluid levels and small free pelvic fluid which may indicate small bowel obstruction and/or ileus. Abdomen X-Ray 10/17/16 00:00 IMPRESSION: Large amount of stool throughout the colon. Persistent air-fluid levels in dilated mid epigastric small bowel loops. Findings worrisome for persistent small bowel obstruction. Consider follow-up CT scanning with oral contrast or a small-bowel follow-through study. Upper GI and Small Bowel X-Ray 10/17/16 00:00 IMPRESSION: Unremarkable upper GI. On all of the images, there is a large amount of stool throughout the colon, and dilated mid epigastric small bowel loops which are similar compared to studies dating back to 10/13/2016. Assessment & Plan - Diagnosis (1) Small bowel obstruction Is this a current diagnosis for this admission?: YesPlan: Patient with recurrent nausea and vomiting. Patient refused NG tube. Patient did have some bowel movements with her enema. KUB demonstrated dilated loop of small bowel. Upper GI with small bowel series was ordered but she refused any more contrast and it was nonconclusive. She threw up her contrast. She is willing to try it again but for a CT with oral contrast. We will give her IV Zofran and Dilaudid.
[2016-10-17] MEDS ORDERED: ONDANSETRON HCL INJ/PF 4 MG/2 ML SDV IV PRN (16:18)
[2016-10-17] MEDS: LORAZEPAM INJ 2 MG/1 ML VIAL IV PRN (18:14)
[2016-10-17] MEDS: HYDROMORPHONE HCL INJ/PF 2 MG/ML AMPULE IV PRN (19:47)
--- NOTE | 2016-10-17 20:42 | RADIOLOGY REPORT (SQ) ---
EXAM DESCRIPTION: KUB/ABDOMEN (SINGLE VIEW) COMPLETED DATE/TIME: 10/17/2016 8:28 pm REASON FOR STUDY: check NGT placement COMPARISON: 10/17/2016. NUMBER OF VIEWS: One view. TECHNIQUE: Supine radiographic image of the abdomen acquired. LIMITATIONS: None. FINDINGS: BOWEL GAS PATTERN: Normal bowel gas pattern. No dilated loops. CALCIFICATIONS: No suspicious calcifications. SOFT TISSUES: No gross mass or suggestion of organomegaly. HARDWARE: Nasogastric tube with the tip and distal end in the stomach. BONES: No acute fracture. No worrisome bone lesions. OTHER: No other significant finding. IMPRESSION: NASOGASTRIC TUBE IN THE STOMACH. NO RADIOGRAPHIC EVIDENCE FOR ACUTE ABDOMINAL DISEASE. TECHNICAL DOCUMENTATION: JOB ID: [id number] [employer]- All Rights Reserved
[2016-10-18] MEDS: ONDANSETRON HCL INJ/PF 4 MG/2 ML SDV IV PRN (01:38)
--- NOTE | 2016-10-18 01:44 | RADIOLOGY REPORT (SQ) ---
EXAM DESCRIPTION: CT ABD/PELVIS ORAL ONLY COMPLETED DATE/TIME: 10/18/2016 12:06 am REASON FOR STUDY: sbo COMPARISON: CT abdomen and pelvis 10/13/2016, upper GI/ small bowel follow-through 10/17/2016. TECHNIQUE: CT scan of the abdomen and pelvis performed with oral contrast. Images reviewed with lung , soft tissue, and bone windows. Reconstructed coronal and sagittal MPR images reviewed. All images s tored on PACS. All CT scanners at this facility use dose modulation, iterative reconstruction, and/or weight based d osing when appropriate to reduce radiation dose to as low as reasonably achievable (ALARA). [facility]: Dose Right [facility]: CareDose [facility]: Dose Right [facility]: Teradose 4D [facility]: [employer] RADIATION DOSE: Up-to-date CT equipment and radiation dose reduction techniques were employed. CTDIv ol: 5.3 mGy. DLP: 263 mGy-cm.mGy. LIMITATIONS: None. FINDINGS: LOWER CHEST: No consolidation or pleural effusion. NON-CONTRASTED LIVER, SPLEEN, ADRENALS: Evaluation limited by lack of IV contrast. No identified sign ificant masses. PANCREAS: No peripancreatic inflammatory changes. GALLBLADDER: Present. RIGHT KIDNEY AND URETER: Assessment for masses limited by lack of IV contrast. No significant calci fications. No hydronephrosis or hydroureter. LEFT KIDNEY AND URETER: Assessment for masses limited by lack of IV contrast. No significant calcif ications. No hydronephrosis or hydroureter. AORTA AND RETROPERITONEUM: No abdominal aortic aneurysm. No retroperitoneal masses or hemorrhage. BOWEL AND PERITONEAL CAVITY: Redemonstration of dilated small bowel loops with air-fluid levels. Col lapsed loops of small bowel are seen in the midline lower abdomen. No free air. Large amount of sto ol in the colon. APPENDIX: Not well visualized. PELVIS, BLADDER, AND ABDOMINAL WALL:The urinary bladder is partially distended. Small amount of air in the urinary bladder may be due to recent instrumentation. The uterus is present. Small amount of free pelvic fluid. Radiopaque piercing in the umbilical region. Small amount of subcutaneous gas i n the left anterior abdominal wall, may be secondary to subcutaneous injection administration. BONES: No acute findings. IMPRESSION: Dilated small bowel loops with air-fluid levels, worrisome for small bowel obstruction, possible transition point in the midline lower abdomen. Large amount of stool in the colon. Small amount of free pelvic fluid. TECHNICAL DOCUMENTATION: JOB ID: [id number] DC- Quality ID # [id number]: Final reports with documentation of one or more dose reduction techniques (e.g., Au tomated exposure control, adjustment of the mA and/or kV according to patient size, use of iterative reconstruction technique) 2010 [employer]- All Rights Reserved
[2016-10-18] MEDS: LORAZEPAM INJ 2 MG/1 ML VIAL IV PRN (03:08)
[2016-10-18 06:09] LABS: HEMOGLOBIN 12.5 g/dL (12.0-15.5); HGB HCT DIFFERENCE -0.5; MEAN CORPUSCULAR HEMOGLOBIN 30.2 pg (27.0-33.4); MEAN CORPUSCULAR HGB CONC 32.9 g/dL (32.0-36.0); MEAN CORPUSCULAR VOLUME 92 fl (80-97); RED BLOOD COUNT 4.13 10^6/uL (3.72-5.28); RED CELL DISTRIBUTION WIDTH 12.9 % (11.5-14.0)
[2016-10-18 06:28] LABS: ANION GAP 13 (5-19); BLOOD UREA NITROGEN 3 mg/dL (7-20); CALCIUM 8.8 mg/dL (8.4-10.2); CARBON DIOXIDE 22 mmol/L (22-30); CHLORIDE 103 mmol/L (98-107); CREATININE RESULT 0.66 mg/dL (0.52-1.25); GLUCOSE 76 mg/dL (75-110); POTASSIUM 4.1 mmol/L (3.6-5.0)
[2016-10-18] MEDS ORDERED: MIDAZOLAM 2 MG/2 ML INJ ONE (10:46)
[2016-10-18] MEDS ORDERED: FENTANYL CITRATE INJ/PF 250 MCG/5 ML AMPULE ONE (10:46)
[2016-10-18] MEDS ORDERED: HYDROMORPHONE HCL INJ/PF 2 MG/ML AMPULE ONE (10:46)
[2016-10-18] MEDS ORDERED: EPHEDRINE SULFATE INJ 50 MG/1 ML AMPULE ONE (10:46)
[2016-10-18] MEDS ORDERED: PROPOFOL INJ 200 MG/20 ML VIAL IV ONE (10:46)
[2016-10-18] MEDS ORDERED: IBUPROFEN INJ 800 MG/8 ML VIAL IV ONE (10:47)
[2016-10-18] MEDS: HYDROMORPHONE HCL INJ/PF 2 MG/ML AMPULE IV PRN ×4 (10:52→23:20)
[2016-10-18] MEDS ORDERED: CEFAZOLIN INJ 1 GM VIAL ONE (11:03)
[2016-10-18] MEDS ORDERED: CIPROFLOXACIN 400 MG/D5W RTU 400 MG/200 ML RTUPB IV ONE (11:35)
[2016-10-18] MEDS ORDERED: FENTANYL CITRATE INJ/PF 100 MCG/2 ML AMPUL IV PRN ×3 (12:25)
[2016-10-18] MEDS ORDERED: ONDANSETRON HCL INJ/PF 4 MG/2 ML SDV IV PRN (12:25)
[2016-10-18] MEDS ORDERED: DIPHENHYDRAMINE HCL 50 MG/ML VIAL IV PRN (12:25)
[2016-10-18] MEDS: ENOXAPARIN SODIUM INJ 40 MG/0.4 ML DISP.SYRIN SUBCUT SCH (13:09)
[2016-10-18] MEDS: FAMOTIDINE INJ/PF 20 MG/2 ML SDV IV SCH ×2 (13:09→21:20)
[2016-10-18] MEDS: FENTANYL CITRATE INJ/PF 100 MCG/2 ML AMPUL ONE ×2 (13:38→13:52)
--- NOTE | 2016-10-18 15:53 | OPERATIVE REPORT E ---
Operative Report NAME: HUSSEIN PLATA : 1980 AGE: 36Y DATE OF SURGERY: 10/18/2016 ROOM: 531 PREOPERATIVE DIAGNOSIS: Small bowel obstruction due to adhesions. POSTOPERATIVE DIAGNOSIS: Small bowel obstruction due to adhesions. PROCEDURE: Exploratory laparotomy, lysis of adhesions. SURGEON: MONIQUE HUNTER M.D. INDICATIONS: This is a 36-year-old female who has had previous 2 sections, open hysterectomy, and oophorectomy. Patient has been having abdominal pains with nausea and vomiting. She had a CAT scan of the abdomen which showed small bowel obstruction. DESCRIPTION OF PROCEDURE: After adequate general anesthesia, the abdomen was then prepped and draped in the usual sterile fashion. Appropriate timeout was performed. Next, a midline incision was then made just above the umbilicus where there was not any scar. Incision deepened down through the fascia and extended below the umbilicus close to the symphysis pubis. There was some yellowish clear fluid on opening the abdomen. There was also an obvious dilated small bowel and collapsed small bowel. The pelvis was explored and in so doing, the band likely occluding the bowel was torn and brought up the bowel into the incision site. There was an obvious area of band constricting the small bowel, actually may have a small area of closed loop about 5-6 cm long. This fell to this area, the bowel is almost completely collapsed. There were other adhesions that were lysed, primarily along the left lateral gutter. It took me at least 30 minutes trying to lyse the adhesions. Next, the small bowel was then checked from the ligament of Treitz down to the cecum and no obvious other abnormalities were noted. The bowel also looked viable and pink. It was constricted and now was wide open. The large bowel was noted to be intact. There was some hard stools inside of the large bowel. Most of the omentum was released. The omentum was primarily stuck in the area of the pelvis and this was eventually clamped and divided between the 2 clamps and subsequently tied with 0 Vicryl ties. No other obvious abnormality was noted. The appendix was noted to be normal and intact. Following this, a piece of Seprafilm was then placed over the adhesion sites around the left lateral gutter and just at the area of the pelvis. Next, the fascia was then closed with running suture using #1 PDS starting at symphysis pubis and going up just above the umbilicus. A second #1 PDS was then started of the upper part of the incision and tied together to the other PDS. The subcutaneous was then irrigated with saline solution and further hemostasis obtained with cautery. The skin was then reapproximated with marquita. Needle, instrument, and sponge counts were all correct. Estimated blood loss about 50 mL. Sterile dressings were placed over the incision site. Patient tolerated procedure well. The patient was then brought to the recovery room in satisfactory condition. DICTATING PHYSICIAN: MONIQUE HUNTER M.D. [id number] PHY#: [id number] ID: [id number] JOB#: [id number] ACCT: [id number] cc:MONIQUE HUNTER M.D. >
[2016-10-18] MEDS: CIPROFLOXACIN 400 MG/D5W RTU 400 MG/200 ML RTUPB IV SCH (21:20)
[2016-10-18] MEDS: NORMAL SALINE 1000 ML 1,000 ML IV PRN (23:20)
[2016-10-19] MEDS: HYDROMORPHONE HCL INJ/PF 2 MG/ML AMPULE IV PRN ×7 (02:43→23:51)
[2016-10-19 05:43] LABS: HEMATOCRIT 34.7 % (36.0-47.0); HEMOGLOBIN 11.4 g/dL (12.0-15.5); HGB HCT DIFFERENCE -0.5; MEAN CORPUSCULAR HEMOGLOBIN 30.2 pg (27.0-33.4); MEAN CORPUSCULAR HGB CONC 32.8 g/dL (32.0-36.0); MEAN CORPUSCULAR VOLUME 92 fl (80-97); RED BLOOD COUNT 3.78 10^6/uL (3.72-5.28); RED CELL DISTRIBUTION WIDTH 12.7 % (11.5-14.0); WHITE BLOOD COUNT 11.5 10^3/uL (4.0-10.5)
[2016-10-19 06:00] LABS: ANION GAP 10 (5-19); BLOOD UREA NITROGEN 4 mg/dL (7-20); CALCIUM 8.2 mg/dL (8.4-10.2); CARBON DIOXIDE 24 mmol/L (22-30); CHLORIDE 107 mmol/L (98-107); CREATININE RESULT 0.58 mg/dL (0.52-1.25); GLUCOSE 81 mg/dL (75-110); POTASSIUM 3.9 mmol/L (3.6-5.0); SODIUM 140.8 mmol/L (137-145)
[2016-10-19] MEDS: NORMAL SALINE 1000 ML 1,000 ML IV PRN (08:30)
[2016-10-19] MEDS: CIPROFLOXACIN 400 MG/D5W RTU 400 MG/200 ML RTUPB IV SCH (09:07)
[2016-10-19] MEDS: ENOXAPARIN SODIUM INJ 40 MG/0.4 ML DISP.SYRIN SUBCUT SCH (09:09)
[2016-10-19] MEDS: FAMOTIDINE INJ/PF 20 MG/2 ML SDV IV SCH ×2 (09:10→21:00)
--- NOTE | 2016-10-19 10:23 | PROGRESS NOTE E ---
Progress Note NAME: HUSSEIN PLATA : 1980 AGE: 36Y DATE: 10/19/2016 ROOM: 531 SUBJECTIVE: This is her first postop day. She had a bowel movement and has been passing flatus and tolerating clear liquids this morning. She is still having incisional pains. OBJECTIVE: Her abdomen is slightly distended but soft. Dressing is clean and dry. PLAN: Continue with the parenteral pain medications for today but keep her on liquids for today. Hopefully we can increase the diet to soft diet in the morning. DICTATING PHYSICIAN: MONIQUE HUNTER M.D. [id number] PHY#: [id number] ID: [id number] JOB#: [id number] ACCT: [id number] cc: >
[2016-10-19] MEDS: LORAZEPAM INJ 2 MG/1 ML VIAL IV PRN (11:33)
[2016-10-19] MEDS: DIAZEPAM 5 MG TABLET PO PRN (20:15)
[2016-10-19] MEDS ORDERED: (PENDING PHARMACY ID) (Prazosin Hcl [Prazosin Hcl] 2 MG) PO SCH (22:00)
[2016-10-19] MEDS ORDERED: DOXAZOSIN MESYLATE 4 MG TABLET PO SCH (22:00)
[2016-10-19 23:51] VITALS: BP 105/70
[2016-10-20] MEDS: HYDROMORPHONE HCL INJ/PF 2 MG/ML AMPULE IV PRN ×2 (02:54→06:07)
[2016-10-20 04:42] LABS: HEMATOCRIT 35.4 % (36.0-47.0); HEMOGLOBIN 11.7 g/dL (12.0-15.5); HGB HCT DIFFERENCE -0.3; MEAN CORPUSCULAR HEMOGLOBIN 30.3 pg (27.0-33.4); MEAN CORPUSCULAR HGB CONC 32.9 g/dL (32.0-36.0); MEAN CORPUSCULAR VOLUME 92 fl (80-97); RED BLOOD COUNT 3.84 10^6/uL (3.72-5.28); RED CELL DISTRIBUTION WIDTH 13.1 % (11.5-14.0); WHITE BLOOD COUNT 6.7 10^3/uL (4.0-10.5)
[2016-10-20] MEDS: DIAZEPAM 5 MG TABLET PO PRN (06:07)
[2016-10-20] MEDS ORDERED: LIDOCAINE 2% INJ-PF (20 MG/ML) 10 ML AMPUL ONE (07:50)
[2016-10-20] MEDS ORDERED: NEOSTIGMINE METHYLSULFATE 10 MG/10 ML VIAL ONE (07:50)
[2016-10-20] MEDS ORDERED: GLYCOPYRROLATE INJ 0.4 MG/2 ML VIAL ONE (07:50)
[2016-10-20] MEDS ORDERED: DEXAMETHASONE SOD PHOSPHATE INJ 4 MG/1 ML VIAL ONE (07:50)
[2016-10-20] MEDS ORDERED: ONDANSETRON HCL INJ/PF 4 MG/2 ML SDV ONE (07:50)
[2016-10-20] MEDS ORDERED: BENZTROPINE MESYLATE 1 MG TABLET PO SCH (10:00)
[2016-10-20] MEDS ORDERED: PAROXETINE HCL 20 MG TABLET PO SCH (10:00)
[2016-10-20] MEDS ORDERED: ARIPIPRAZOLE 5 MG TABLET PO SCH (10:00)
--- NOTE | 2016-10-20 18:48 | DISCHARGE SUMMARY E ---
Discharge Summary NAME: HUSSEIN PLATA : 1980 AGE: 36Y ADMITTED: 10/13/2016 DISCHARGED: 10/20/2016 FINAL DIAGNOSES: Small bowel obstruction due to adhesions. HOSPITAL COURSE: Patient complaining of abdominal pain, nausea, and vomiting. She had a CAT scan of the abdomen which showed a small bowel obstruction. I finally took her to the OR on 10/18/2016 in the morning where she underwent exploratory laparotomy, release of a small bowel obstruction with lysis of adhesions. Postoperatively, she did well and tolerating a soft diet on the day of discharge. Unfortunately, she was upset with the nurse not letting her go out and smoke on 10/20/2016, and therefore she signed AMA. I called her on the phone and left a message, and she called me back, and she said she is still in pain, but she is able to tolerate her diet. She is asking for some pain medication. I left her a prescription for Percocet to take 1 every 6 hours as needed p.r.n. for pain, and she is to call the surgical clinic for followup in about a week to 10 days for them to remove the marquita on her incision site. She also was resumed with all her antianxiety medications. She is advised not to do any heavy lifting more than 10 pounds for the next 2 weeks or until seen in the surgical clinic. DICTATING PHYSICIAN: MONIQUE HUNTER M.D. [id number] PHY#: [id number] ID: [id number] JOB#: [id number] ACCT: [id number] cc:Conchita VÁSQUEZ, MONIQUE HUNTER M.D. >
== END 2016-10-20 07:50 | disposition left against medical advice (07) | DRG 337 ==
LOC: ER 22:23 → UNDOADMOB 10-13 06:47 → EH 10-13 06:47 → OBSVTOIN 10-13 09:10 → 5 10-13 09:46
PROVIDERS: ADMIT Surgery; ATTEND Surgery
PROC: 0DN80ZZ Release Small Intestine, Open Approach (ICD-10-PCS; principal; 2016-10-18 11:30)
DX: K56.5 Intestinal adhesions [bands] with obstruction (postinfection) (principal); R11.2 Nausea with vomiting, unspecified; J45.909 Unspecified asthma, uncomplicated; G43.909 Migraine, unspecified, not intractable, without status migrainosus; F17.210 Nicotine dependence, cigarettes, uncomplicated; Z88.0 Allergy status to penicillin; Z88.5 Allergy status to narcotic agent; Z88.6 Allergy status to analgesic agent
CPT/HCPCS: 36415; 74000; 74020; 74022; 74176; 74177; 74249; 790; 80048; 80053; 81001; 81025; 82962; 83690; 85025; 85027; 96361; 96372; 96374; 96375; 99285; J0690; J0744; J1100; J1170; J1650; J1741; J2060; J2250; J2270; J2405; J2550; J2704; J2765; J3010; J3480; J3490; J7030; J7040; S0028

== ENCOUNTER 2016-10-21 19:25 | Emergency (ER) | payer MEDICAID ==
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
[2016-10-21 21:40] LABS: ABSOLUTE EOSINOPHILS # (AUTO) 0.3 10^3/uL (0.0-0.6); ABSOLUTE LYMPHOCYTES (AUTO) 1.7 10^3/uL (0.5-4.7); ABSOLUTE MONOCYTES (AUTO) 0.4 10^3/uL (0.1-1.4); ABSOLUTE NEUT (AUTO) 3.6 10^3/uL (1.7-8.2); BASOPHILS % (AUTO) 0.4 % (0-2); EOSINOPHILS % (AUTO) 4.9 % (0-6); HEMATOCRIT 33.2 % (36.0-47.0); HGB HCT DIFFERENCE -0.2; LYMPHOCYTES % (AUTO) 27.9 % (13-45); MEAN CORPUSCULAR HEMOGLOBIN 30.5 pg (27.0-33.4); MEAN CORPUSCULAR HGB CONC 33.3 g/dL (32.0-36.0); MEAN CORPUSCULAR VOLUME 92 fl (80-97); MONOCYTES % (AUTO) 6.4 % (3-13); RED BLOOD COUNT 3.62 10^6/uL (3.72-5.28); RED CELL DISTRIBUTION WIDTH 13.1 % (11.5-14.0); SEGMENTED NEUTROPHILS % (AUTO) 60.4 % (42-78); WHITE BLOOD COUNT 5.9 10^3/uL (4.0-10.5)
[2016-10-21 21:54] LABS: ALANINE AMINOTRANSFERASE 41 U/L (9-52); ALBUMIN 3.3 g/dL (3.5-5.0); ALKALINE PHOSPHATASE 55 U/L (38-126); ANION GAP 8 (5-19); ASPARTATE AMINO TRANSFERASE 25 U/L (14-36); BILIRUBIN,DIRECT 0.3 mg/dL (0.0-0.4); BILIRUBIN,TOTAL 0.4 mg/dL (0.2-1.3); BLOOD UREA NITROGEN 3 mg/dL (7-20); CALCIUM 8.7 mg/dL (8.4-10.2); CARBON DIOXIDE 28 mmol/L (22-30); CHLORIDE 105 mmol/L (98-107); CREATININE RESULT 0.58 mg/dL (0.52-1.25); GLUCOSE 102 mg/dL (75-110); POTASSIUM 3.4 mmol/L (3.6-5.0); SODIUM 141.1 mmol/L (137-145); TOTAL PROTEIN 5.6 g/dL (6.3-8.2)
[2016-10-21 22:00] LABS: APPEARANCE,URINE CLEAR; BILIRUBIN,URINE NEGATIVE (NEGATIVE); GLUCOSE, URINE NEGATIVE (NEGATIVE); KETONES,URINE NEGATIVE (NEGATIVE); LEUKOCYTE ESTERASE,URINE NEGATIVE (NEGATIVE); NITRITE,URINE NEGATIVE (NEGATIVE); PROTEIN,URINE NEGATIVE (NEGATIVE); URINE SPECIFIC GRAVITY 1.013; UROBILINOGEN,URINE NEGATIVE mg/dL (<2.0)
--- NOTE | 2016-10-21 22:03 | RADIOLOGY REPORT (SQ) ---
EXAM DESCRIPTION: ACUTE ABDOMEN SERIES COMPLETED DATE/TIME: 10/21/2016 9:40 pm REASON FOR STUDY: abdominal pain distention COMPARISON: 10/17/2016 NUMBER OF VIEWS: Three views. TECHNIQUE: Frontal chest, supine abdomen and upright/decubitus abdomen radiographic images acquired. LIMITATIONS: None. FINDINGS: CHEST: Lungs clear of infiltrates. FREE AIR: None. No abnormal gas collections. BOWEL GAS PATTERN: Marked amount of fecal material. Few scattered small bowel loops. CONSTIPATION: marked. CALCIFICATIONS: No suspicious calcifications. HARDWARE: Spot midline surgical clips. SOFT TISSUES: No gross mass or suggestion of organomegaly. BONES: No acute fracture. No worrisome bone lesions. OTHER: No other significant finding. IMPRESSION: Marked constipation. Few scattered small bowel loops without evidence for obstruction. TECHNICAL DOCUMENTATION: JOB ID: [id number] [employer]- All Rights Reserved
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
[2016-10-22] MEDS ORDERED: CLINDAMYCIN HCL 150 MG CAPSULE PO ONE (02:32)
[2016-10-22] MEDS ORDERED: POLYETHYLENE GLYCOL 3350 POWDER 17 GM/1 PACKET PO ONE (02:33)
[2016-10-22] MEDS ORDERED: OXYCODONE-ACETAMINOPHEN 5-325 MG TABLET PO ONE (02:33)
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
[2016-10-22 03:02] VITALS: BP 121/89
== END 2016-10-22 03:00 | disposition home or self-care (01) ==
LOC: ER 19:25
DX: T81.4XXA Infection following a procedure, initial encounter (principal); K59.01 Slow transit constipation; G89.18 Other acute postprocedural pain; R60.1 Generalized edema; R10.9 Unspecified abdominal pain; F17.200 Nicotine dependence, unspecified, uncomplicated; Z88.6 Allergy status to analgesic agent; Z88.0 Allergy status to penicillin; Z87.442 Personal history of urinary calculi; Z85.43 Personal history of malignant neoplasm of ovary; Z90.710 Acquired absence of both cervix and uterus
CPT/HCPCS: 99283; 36415; 85025; 80053; 81001; 74022; J3490 ×2

== ENCOUNTER 2017-02-27 16:10 | Emergency (ER) | payer MEDICAID ==
[2017-02-27 16:45] LABS: APPEARANCE,URINE CLOUDY; BILIRUBIN,URINE NEGATIVE (NEGATIVE); GLUCOSE, URINE NEGATIVE (NEGATIVE); KETONES,URINE NEGATIVE (NEGATIVE); LEUKOCYTE ESTERASE,URINE LARGE (NEGATIVE); NITRITE,URINE POSITIVE (NEGATIVE); PROTEIN,URINE NEGATIVE (NEGATIVE); URINE SPECIFIC GRAVITY 1.009; UROBILINOGEN,URINE NEGATIVE mg/dL (<2.0)
[2017-02-27] MEDS ORDERED: NORMAL SALINE 1000 ML 1,000 ML IV ONE (16:46)
[2017-02-27] MEDS ORDERED: ONDANSETRON 4 MG TAB.RAPDIS PO ONE (16:47)
[2017-02-27] MEDS ORDERED: CEFTRIAXONE 1 GM/D5W RTU 1 GM/50 ML RTUPB IV ONE (16:49)
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
[2017-02-27] MEDS ORDERED: FAMOTIDINE INJ/PF 20 MG/2 ML SDV IV SCH (17:00)
[2017-02-27 17:16] LABS: ABSOLUTE BASOPHILS # (AUTO) 0.1 10^3/uL (0.0-0.2); ABSOLUTE EOSINOPHILS # (AUTO) 0.2 10^3/uL (0.0-0.6); ABSOLUTE MONOCYTES (AUTO) 0.5 10^3/uL (0.1-1.4); ABSOLUTE NEUT (AUTO) 9.3 10^3/uL (1.7-8.2); BASOPHILS % (AUTO) 0.5 % (0-2); EOSINOPHILS % (AUTO) 1.5 % (0-6); HEMATOCRIT 41.2 % (36.0-47.0); HEMOGLOBIN 14.3 g/dL (12.0-15.5); HGB HCT DIFFERENCE 1.7; LYMPHOCYTES % (AUTO) 8.8 % (13-45); MEAN CORPUSCULAR HEMOGLOBIN 32.1 pg (27.0-33.4); MEAN CORPUSCULAR HGB CONC 34.7 g/dL (32.0-36.0); MEAN CORPUSCULAR VOLUME 93 fl (80-97); MONOCYTES % (AUTO) 4.4 % (3-13); RED BLOOD COUNT 4.46 10^6/uL (3.72-5.28); RED CELL DISTRIBUTION WIDTH 14.4 % (11.5-14.0); SEGMENTED NEUTROPHILS % (AUTO) 84.8 % (42-78)
[2017-02-27 17:31] LABS: ALANINE AMINOTRANSFERASE 37 U/L (9-52); ALBUMIN 4.4 g/dL (3.5-5.0); ALKALINE PHOSPHATASE 93 U/L (38-126); ANION GAP 11 (5-19); ASPARTATE AMINO TRANSFERASE 34 U/L (14-36); BILIRUBIN,DIRECT 0.4 mg/dL (0.0-0.4); BILIRUBIN,TOTAL 0.6 mg/dL (0.2-1.3); BLOOD UREA NITROGEN 10 mg/dL (7-20); CALCIUM 9.3 mg/dL (8.4-10.2); CARBON DIOXIDE 27 mmol/L (22-30); CHLORIDE 104 mmol/L (98-107); GLUCOSE 88 mg/dL (75-110); LIPASE 112.9 U/L (23-300); POTASSIUM 4.5 mmol/L (3.6-5.0); SODIUM 141.7 mmol/L (137-145); TOTAL PROTEIN 6.9 g/dL (6.3-8.2)
--- NOTE | 2017-02-27 17:50 | RADIOLOGY REPORT (SQ) ---
EXAM DESCRIPTION: ACUTE ABDOMEN SERIES COMPLETED DATE/TIME: 02/27/2017 5:31 pm REASON FOR STUDY: abd pain, hx of obstruction COMPARISON: CT abdomen pelvis 10/17/2016 Abdominal films 10/13/2016, 10/14/2016, 10/17/2016, 10/21/2016 Upper GI small bowel series [id number] NUMBER OF VIEWS: Three views. TECHNIQUE: Frontal chest, supine abdomen and upright abdomen radiographic images acquired. LIMITATIONS: None. FINDINGS: CHEST: Lungs clear of infiltrates. No pleural effusion or pneumothorax. Cardiac silhouet te size, gail, bony structures unremarkable. FREE AIR: None. No abnormal gas collections. BOWEL GAS PATTERN: Massive amount of stool in the transverse, descending and sigmoid colon. Small oneil wel loops decompressed CALCIFICATIONS: No suspicious calcifications. HARDWARE: None in the abdomen. SOFT TISSUES: No gross mass or suggestion of organomegaly. BONES: No acute fracture. No worrisome bone lesions. OTHER: No other significant finding. IMPRESSION: Constipation TECHNICAL DOCUMENTATION: JOB ID: [id number] [employer]- All Rights Reserved
[2017-02-27] MEDS ORDERED: LACTULOSE SYRUP 20 GM/30 ML UDCUP PO ONE (18:11)
[2017-02-27] MEDS ORDERED: BISACODYL 5 MG TABEC PO ONE (18:12)
[2017-02-27 18:52] VITALS: BP 113/70
== END 2017-02-27 18:52 | disposition home or self-care (01) ==
LOC: ER 16:10
DX: N39.0 Urinary tract infection, site not specified (principal); K59.00 Constipation, unspecified; R10.9 Unspecified abdominal pain; R30.0 Dysuria; R14.0 Abdominal distension (gaseous); M54.9 Dorsalgia, unspecified; F17.200 Nicotine dependence, unspecified, uncomplicated
CPT/HCPCS: 99284; 96361; 96375; 96365; 36415; 87086; 83690; 85025; 81025; 87088; 80053; 81001; 87186; 74022; S0119; J3490; J7030; S0028; J0696

== ENCOUNTER 2017-05-16 08:57 | Emergency (ER) | payer SELFPAY ==
[2017-05-16] MEDS ORDERED: PROCHLORPERAZINE EDISYLATE INJ 10 MG/2 ML VIAL IV ONE (10:37)
[2017-05-16] MEDS ORDERED: DIPHENHYDRAMINE HCL 50 MG/ML VIAL IV ONE (10:37)
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
[2017-05-16] MEDS ORDERED: DEXAMETHASONE SOD PHOSPHATE INJ 4 MG/1 ML VIAL IV ONE (11:20)
[2017-05-16] MEDS ORDERED: KETOROLAC TROMETHAMINE INJ/PF 30 MG/1 ML SDV IV ONE (11:20)
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
[2017-05-16 11:23] LABS: ABSOLUTE EOSINOPHILS # (AUTO) 0.1 10^3/uL (0.0-0.6); ABSOLUTE MONOCYTES (AUTO) 0.3 10^3/uL (0.1-1.4); ABSOLUTE NEUT (AUTO) 8.9 10^3/uL (1.7-8.2); BASOPHILS % (AUTO) 0.2 % (0-2); EOSINOPHILS % (AUTO) 0.5 % (0-6); HEMATOCRIT 41.2 % (36.0-47.0); HEMOGLOBIN 14.1 g/dL (12.0-15.5); LYMPHOCYTES % (AUTO) 9.3 % (13-45); MEAN CORPUSCULAR HEMOGLOBIN 31.4 pg (27.0-33.4); MEAN CORPUSCULAR HGB CONC 34.2 g/dL (32.0-36.0); MEAN CORPUSCULAR VOLUME 92 fl (80-97); MONOCYTES % (AUTO) 3.2 % (3-13); PLATELET COUNT 198 10^3/uL (150-450); RED BLOOD COUNT 4.48 10^6/uL (3.72-5.28); RED CELL DISTRIBUTION WIDTH 12.5 % (11.5-14.0); SEGMENTED NEUTROPHILS % (AUTO) 86.8 % (42-78); TOTAL CELLS COUNTED % (AUTO) 100 %; WHITE BLOOD COUNT 10.3 10^3/uL (4.0-10.5)
[2017-05-16 11:35] LABS: ALANINE AMINOTRANSFERASE 21 U/L (9-52); ALKALINE PHOSPHATASE 76 U/L (38-126); ANION GAP 11 (5-19); ASPARTATE AMINO TRANSFERASE 18 U/L (14-36); BILIRUBIN,DIRECT 0.2 mg/dL (0.0-0.4); BILIRUBIN,TOTAL 0.4 mg/dL (0.2-1.3); BLOOD UREA NITROGEN 8 mg/dL (7-20); CALCIUM 10.3 mg/dL (8.4-10.2); CARBON DIOXIDE 28 mmol/L (22-30); CHLORIDE 104 mmol/L (98-107); GLUCOSE 114 mg/dL (75-110); POTASSIUM 4.4 mmol/L (3.6-5.0); SODIUM 143.3 mmol/L (137-145); TOTAL PROTEIN 7.3 g/dL (6.3-8.2)
--- NOTE | 2017-05-16 11:54 | RADIOLOGY REPORT (SQ) ---
EXAM DESCRIPTION: CT HEAD WITHOUT COMPLETED DATE/TIME: 05/16/2017 11:39 am REASON FOR STUDY: BEARD, new features COMPARISON: 06/17/2015 TECHNIQUE: Axial images acquired through the brain without intravenous contrast. Images reviewed wi th bone, brain and subdural windows. Images stored on PACS. All CT scanners at this facility use dose modulation, iterative reconstruction, and/or weight based d osing when appropriate to reduce radiation dose to as low as reasonably achievable (ALARA). [facility]: Dose Right [facility]: CareDose [facility]: Dose Right [facility]: Teradose 4D [facility]: [employer] RADIATION DOSE: CT Rad equipment meets quality standard of care and radiation dose reduction techniq ues were employed. CTDIvol: 64.6 mGy. DLP: 1163 mGy-cm. mGy. LIMITATIONS: None. FINDINGS: VENTRICLES: Normal size and contour. CEREBRUM: No masses. No hemorrhage. No midline shift. No evidence for acute infarction. Normal gra y/white matter differentiation. No areas of low density in the white matter. CEREBELLUM: No masses. No hemorrhage. No alteration of density. No evidence for acute infarction. EXTRAAXIAL SPACES: No fluid collections. No masses. ORBITS AND GLOBE: No intra- or extraconal masses. Normal contour of globe without masses. CALVARIUM: No fracture. PARANASAL SINUSES: Mucus or serous retention cyst right sphenoid sinus SOFT TISSUES: No mass or hematoma. OTHER: No other significant finding. IMPRESSION: NORMAL BRAIN CT WITHOUT CONTRAST. EVIDENCE OF ACUTE STROKE: NO. COMMENT: Quality ID # [id number]: Final reports with documentation of one or more dose reduction techniques (e.g., Automated exposure control, adjustment of the mA and/or kV according to patient size, use of iterative reconstruction technique) TECHNICAL DOCUMENTATION: JOB ID: [id number]- All Rights Reserved
[2017-05-16 12:43] VITALS: BP 98/68
== END 2017-05-16 12:40 | disposition home or self-care (01) ==
LOC: ER 08:57
DX: G43.909 Migraine, unspecified, not intractable, without status migrainosus (principal); R11.0 Nausea; R42 Dizziness and giddiness; F17.200 Nicotine dependence, unspecified, uncomplicated; Z88.0 Allergy status to penicillin; Z88.6 Allergy status to analgesic agent; Z87.442 Personal history of urinary calculi; Z85.43 Personal history of malignant neoplasm of ovary; Z90.710 Acquired absence of both cervix and uterus
CPT/HCPCS: 99284; 96374; 96375; 36415; 85025; 80053; 70450; J1100; J1200; J1885; J0780

== ENCOUNTER 2017-06-15 14:40 | Emergency (ER) | payer MEDICAID ==
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
[2017-06-15 16:23] LABS: ABSOLUTE BASOPHILS # (AUTO) 0.1 10^3/uL (0.0-0.2); ABSOLUTE EOSINOPHILS # (AUTO) 0.3 10^3/uL (0.0-0.6); ABSOLUTE LYMPHOCYTES (AUTO) 1.7 10^3/uL (0.5-4.7); ABSOLUTE MONOCYTES (AUTO) 0.6 10^3/uL (0.1-1.4); EOSINOPHILS % (AUTO) 4.4 % (0-6); HEMATOCRIT 42.4 % (36.0-47.0); HEMOGLOBIN 14.6 g/dL (12.0-15.5); LYMPHOCYTES % (AUTO) 21.7 % (13-45); MEAN CORPUSCULAR HEMOGLOBIN 31.3 pg (27.0-33.4); MEAN CORPUSCULAR HGB CONC 34.4 g/dL (32.0-36.0); MEAN CORPUSCULAR VOLUME 91 fl (80-97); MONOCYTES % (AUTO) 7.8 % (3-13); PLATELET COUNT 227 10^3/uL (150-450); RED BLOOD COUNT 4.66 10^6/uL (3.72-5.28); RED CELL DISTRIBUTION WIDTH 12.5 % (11.5-14.0); SEGMENTED NEUTROPHILS % (AUTO) 65.1 % (42-78); TOTAL CELLS COUNTED % (AUTO) 100 %; WHITE BLOOD COUNT 7.7 10^3/uL (4.0-10.5)
[2017-06-15 16:36] LABS: APPEARANCE,URINE SLIGHTLY-CLOUDY; BILIRUBIN,URINE NEGATIVE (NEGATIVE); COLOR,URINE YELLOW; GLUCOSE, URINE NEGATIVE (NEGATIVE); KETONES,URINE NEGATIVE (NEGATIVE); LEUKOCYTE ESTERASE,URINE NEGATIVE (NEGATIVE); NITRITE,URINE POSITIVE (NEGATIVE); PROTEIN,URINE NEGATIVE (NEGATIVE); URINE SPECIFIC GRAVITY 1.006; UROBILINOGEN,URINE NEGATIVE mg/dL (<2.0)
[2017-06-15 16:38] LABS: ALANINE AMINOTRANSFERASE 24 U/L (9-52); ALBUMIN 4.7 g/dL (3.5-5.0); ALKALINE PHOSPHATASE 61 U/L (38-126); ANION GAP 11 (5-19); ASPARTATE AMINO TRANSFERASE 18 U/L (14-36); BILIRUBIN,DIRECT 0.2 mg/dL (0.0-0.4); BILIRUBIN,TOTAL 0.2 mg/dL (0.2-1.3); BLOOD UREA NITROGEN 9 mg/dL (7-20); CALCIUM 9.7 mg/dL (8.4-10.2); CARBON DIOXIDE 27 mmol/L (22-30); CHLORIDE 103 mmol/L (98-107); GLUCOSE 88 mg/dL (75-110); SODIUM 141.4 mmol/L (137-145); TOTAL PROTEIN 6.8 g/dL (6.3-8.2)
--- NOTE | 2017-06-15 16:57 | RADIOLOGY REPORT (SQ) ---
EXAM DESCRIPTION: U/S ABDOMEN LIMITED W/O DOP COMPLETED DATE/TIME: 06/15/2017 4:45 pm REASON FOR STUDY: upper abdominal pain r/o GB disease COMPARISON: None. TECHNIQUE: Dynamic and static grayscale images acquired of the abdomen and recorded on PACS. Additio nal selected color Doppler and spectral images recorded. LIMITATIONS: None. FINDINGS: PANCREAS: No masses. Visualized pancreatic duct normal caliber. LIVER: No masses. Echotexture normal. LIVER VASCULATURE: Normal directional flow of the main portal vein and hepatic veins. GALLBLADDER: No stones. Normal wall thickness. No pericholecystic fluid. ULTRASOUND-DETECTED MATHIS'S SIGN: Negative. INTRAHEPATIC DUCTS AND COMMON DUCT: CBD and intrahepatic ducts normal caliber. No filling defects. INFERIOR VENA CAVA: Normal flow. AORTA: No aneurysm. RIGHT KIDNEY: Normal size. Normal echogenicity. No solid or suspicious masses. No hydronephrosis. No calcifications. PERITONEAL AND RIGHT PLEURAL SPACE: No ascites or effusions. OTHER: No other significant findings. IMPRESSION: NORMAL RIGHT UPPER QUADRANT ULTRASOUND. TECHNICAL DOCUMENTATION: JOB ID: [id number] [employer]- All Rights Reserved Reading location - IP/workstation name: [email or web address]
[2017-06-15] MEDS ORDERED: CEFTRIAXONE INJ 1000 MG VIAL IM ONE (17:23)
[2017-06-15] MEDS ORDERED: LIDOCAINE 1% INJ-PF (10 MG/ML) 30 ML SDV INJ ONE (17:23)
[2017-06-15] MEDS ORDERED: AZITHROMYCIN 250 MG TABLET PO ONE (17:23)
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
[2017-06-15 17:44] VITALS: BP 107/62
== END 2017-06-15 17:45 | disposition home or self-care (01) ==
LOC: ER 14:40
DX: R10.9 Unspecified abdominal pain (principal); F17.200 Nicotine dependence, unspecified, uncomplicated; Z20.2 Contact with and (suspected) exposure to infections with a predominantly sexual mode of transmission; Z88.0 Allergy status to penicillin; Z88.6 Allergy status to analgesic agent
CPT/HCPCS: 99284; 96372; 36415; 85025; 80053; 81001; 76705; Q0144; J3490; J0696

== ENCOUNTER 2017-06-30 10:50 | Emergency (ER) | payer MEDICAID ==
[2017-06-30 10:56] VITALS: BP 116/80
== END 2017-06-30 12:15 | disposition left against medical advice (07) ==
LOC: ER 10:50
DX: Z53.21 Procedure and treatment not carried out due to patient leaving prior to being seen by health care provider (principal); T78.40XA Allergy, unspecified, initial encounter

== ENCOUNTER 2017-07-07 12:43 | Emergency (ER) | payer MEDICAID ==
[2017-07-07 12:53] VITALS: BP 107/74
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
[2017-07-07 13:34] LABS: ABSOLUTE BASOPHILS # (AUTO) 0.1 10^3/uL (0.0-0.2); ABSOLUTE EOSINOPHILS # (AUTO) 0.2 10^3/uL (0.0-0.6); ABSOLUTE LYMPHOCYTES (AUTO) 1.7 10^3/uL (0.5-4.7); ABSOLUTE MONOCYTES (AUTO) 0.5 10^3/uL (0.1-1.4); BASOPHILS % (AUTO) 0.6 % (0-2); EOSINOPHILS % (AUTO) 1.5 % (0-6); HEMATOCRIT 41.3 % (36.0-47.0); LYMPHOCYTES % (AUTO) 13.8 % (13-45); MEAN CORPUSCULAR HGB CONC 33.9 g/dL (32.0-36.0); MEAN CORPUSCULAR VOLUME 92 fl (80-97); PLATELET COUNT 237 10^3/uL (150-450); RED BLOOD COUNT 4.52 10^6/uL (3.72-5.28); RED CELL DISTRIBUTION WIDTH 13.3 % (11.5-14.0); SEGMENTED NEUTROPHILS % (AUTO) 80.1 % (42-78); TOTAL CELLS COUNTED % (AUTO) 100 %; WHITE BLOOD COUNT 12.5 10^3/uL (4.0-10.5)
[2017-07-07 13:52] LABS: ALANINE AMINOTRANSFERASE 27 U/L (9-52); ALBUMIN 4.8 g/dL (3.5-5.0); ALKALINE PHOSPHATASE 69 U/L (38-126); ANION GAP 9 (5-19); ASPARTATE AMINO TRANSFERASE 22 U/L (14-36); BILIRUBIN,TOTAL 0.6 mg/dL (0.2-1.3); BLOOD UREA NITROGEN 8 mg/dL (7-20); CALCIUM 9.9 mg/dL (8.4-10.2); CARBON DIOXIDE 28 mmol/L (22-30); CHLORIDE 104 mmol/L (98-107); GLUCOSE 100 mg/dL (75-110); LIPASE 77.8 U/L (23-300); POTASSIUM 4.5 mmol/L (3.6-5.0); SODIUM 141.1 mmol/L (137-145); TOTAL PROTEIN 6.9 g/dL (6.3-8.2)
[2017-07-07] MEDS ORDERED: ONDANSETRON HCL INJ/PF 4 MG/2 ML SDV IV ONE (14:19)
[2017-07-07] MEDS ORDERED: MORPHINE SULFATE 10 MG/ML INJ IV ONE (15:01)
[2017-07-07] MEDS ORDERED: NORMAL SALINE 1000 ML 1,000 ML IV PRN (15:04)
[2017-07-07] MEDS ORDERED: DIPHENHYDRAMINE HCL 50 MG/ML VIAL IV ONE (15:05)
[2017-07-07] MEDS ORDERED: METOCLOPRAMIDE HCL INJ/PF 10 MG/2 ML SDV IV ONE (15:05)
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
[2017-07-07 15:28] LABS: APPEARANCE,URINE CLEAR; BILIRUBIN,URINE NEGATIVE (NEGATIVE); COLOR,URINE AMBER; GLUCOSE, URINE NEGATIVE (NEGATIVE); KETONES,URINE NEGATIVE (NEGATIVE); LEUKOCYTE ESTERASE,URINE NEGATIVE (NEGATIVE); NITRITE,URINE POSITIVE (NEGATIVE); PROTEIN,URINE NEGATIVE (NEGATIVE); URINE SPECIFIC GRAVITY 1.001
--- NOTE | 2017-07-07 16:28 | RADIOLOGY REPORT (SQ) ---
EXAM DESCRIPTION: CT ABD/PELVIS WITH IV ORAL COMPLETED DATE/TIME: 07/07/2017 4:01 pm REASON FOR STUDY: abd pain COMPARISON: 10/17/2016 TECHNIQUE: CT scan of the abdomen and pelvis performed using helical scanning technique with dynamic intravenous contrast injection. No oral contrast. Images reviewed with lung, soft tissue, and bone windows. Reconstructed coronal and sagittal MPR images reviewed. Delayed images for evaluation of the urinary system also acquired. All images stored on PACS. All CT scanners at this facility use dose modulation, iterative reconstruction, and/or weight based d osing when appropriate to reduce radiation dose to as low as reasonably achievable (ALARA). [facility]: Dose Right [facility]: CareDose [facility]: Dose Right [facility]: Teradose 4D [facility]: Healarium CONTRAST TYPE AND DOSE: contrast/concentration: Isovue 370.00 mg/ml; Total Contrast Delivered: 65.0 ml; Total Saline Delivered: 55.0 ml RENAL FUNCTION: Creatinine - 0.67 BUN=8 RADIATION DOSE: CT Rad equipment meets quality standard of care and radiation dose reduction techniq ues were employed. CTDIvol: 5.2 - 6.2 mGy. DLP: 615 mGy-cm.. LIMITATIONS: None. FINDINGS: LOWER CHEST: No significant interval changes. LIVER: A few too small to characterize hypoattenuated hepatic lesions. No dilated ducts. The hepat ic and portal veins are patent. SPLEEN: Normal size. No focal lesions. PANCREAS: No masses. No significant calcifications. No adjacent inflammation or peripancreatic fluid collections. Pancreatic duct not dilated. GALLBLADDER: No identified stones by CT criteria. No inflammatory changes to suggest cholecystitis. ADRENAL GLANDS: No significant masses or asymmetry. RIGHT KIDNEY AND URETER: Very small right renal calculi suggest in the cortex of the kidney. Extrar enal pelvis, normal anatomic variant. No solid masses. No significant calcifications. No hydrone phrosis or hydroureter. LEFT KIDNEY AND URETER: Extrarenal pelvis on the left, normal anatomic variant. No solid masses. No significant calcifications. No hydronephrosis or hydroureter. AORTA AND VESSELS: No aneurysm. No dissection. Renal arteries, SMA, celiac without stenosis. RETROPERITONEUM: No retroperitoneal adenopathy, hemorrhage or masses. BOWEL AND PERITONEAL CAVITY: The colon is incompletely distended with oral contrast. The patient coles s a history of partial small bowel resection. No free fluid. APPENDIX: Normal. PELVIS: As on the prior examination, the uterus is present and appears to be retroverted/retroflexed . No mass. No free fluid. Normal bladder. ABDOMINAL WALL: No masses. No hernias. BONES: The osseous structures are stable in appearance. No significant or acute findings. OTHER: No other significant finding. IMPRESSION: 1 The colon is incompletely distended with oral contrast which limits the examination. The patient has a history of partial small bowel resection. No evidence of bowel obstruction. 2. A few stable too small to characterize hypoattenuated hepatic lesions. 3 Additional stable findings as above. TECHNICAL DOCUMENTATION: JOB ID: [id number] Quality ID # [id number]: Final reports with documentation of one or more dose reduction techniques (e.g., Au tomated exposure control, adjustment of the mA and/or kV according to patient size, use of iterative reconstruction technique) 2010 [employer]- All Rights Reserved Reading location - IP/workstation name: [email or web address]
[2017-07-07 16:59] LABS: CHLAM PCR NOT DETECTED (NOT DETECT); GON PCR NOT DETECTED (NOT DETECT)
== END 2017-07-07 17:31 | disposition home or self-care (01) ==
LOC: ER 12:43
DX: R11.2 Nausea with vomiting, unspecified (principal); R10.31 Right lower quadrant pain; R19.7 Diarrhea, unspecified; R50.9 Fever, unspecified; J45.909 Unspecified asthma, uncomplicated; F17.210 Nicotine dependence, cigarettes, uncomplicated; Z88.5 Allergy status to narcotic agent; Z88.0 Allergy status to penicillin; Z88.6 Allergy status to analgesic agent; Z85.43 Personal history of malignant neoplasm of ovary; Z90.710 Acquired absence of both cervix and uterus; Z87.19 Personal history of other diseases of the digestive system; Z90.79 Acquired absence of other genital organ(s)
CPT/HCPCS: 99284; 96361; 96374; 96375; 36415; 83690; 84703; 85025; 80053; 81001; 87491; 87591; 74177; J1200; J2765; J2270; J2405; J7030

== ENCOUNTER 2017-11-12 20:06 | Emergency (ER) | payer MEDICAID ==
[2017-11-12 20:33] VITALS: BP 115/66
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
== END 2017-11-12 22:07 | disposition home or self-care (01) ==
LOC: ER 20:06
DX: K06.8 Other specified disorders of gingiva and edentulous alveolar ridge (principal); K91.840 Postprocedural hemorrhage of a digestive system organ or structure following a digestive system procedure; J45.909 Unspecified asthma, uncomplicated
CPT/HCPCS: 99282

== ENCOUNTER 2018-10-23 20:37 | Emergency (ER) | payer MEDICAID ==
[2018-10-23 20:43] VITALS: BP 108/70
== END 2018-10-23 23:17 | disposition left against medical advice (07) ==
LOC: ER 20:37
DX: Z53.21 Procedure and treatment not carried out due to patient leaving prior to being seen by health care provider (principal)

== ENCOUNTER 2018-12-15 17:24 | Emergency (ER) | payer SELFPAY ==
[2018-12-15] MEDS ORDERED: ONDANSETRON HCL INJ/PF 4 MG/2 ML SDV IV ONE (19:01)
[2018-12-15] MEDS ORDERED: NORMAL SALINE 1000 ML 1,000 ML IV ONE (19:02)
[2018-12-15] MEDS ORDERED: OXYCODONE-ACETAMINOPHEN 5-325 MG TABLET PO ONE (19:04)
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
[2018-12-15 19:29] LABS: ABSOLUTE BASOPHILS # (AUTO) 0.1 10^3/uL (0.0-0.2); ABSOLUTE EOSINOPHILS # (AUTO) 0.2 10^3/uL (0.0-0.6); ABSOLUTE LYMPHOCYTES (AUTO) 3.6 10^3/uL (0.5-4.7); ABSOLUTE MONOCYTES (AUTO) 0.6 10^3/uL (0.1-1.4); ABSOLUTE NEUT (AUTO) 8.2 10^3/uL (1.7-8.2); BASOPHILS % (AUTO) 0.9 % (0-2); EOSINOPHILS % (AUTO) 1.6 % (0-6); HEMATOCRIT 45.2 % (36.0-47.0); HEMOGLOBIN 15.2 g/dL (12.0-15.5); LYMPHOCYTES % (AUTO) 28.5 % (13-45); MEAN CORPUSCULAR HEMOGLOBIN 30.2 pg (27.0-33.4); MEAN CORPUSCULAR HGB CONC 33.7 g/dL (32.0-36.0); MEAN CORPUSCULAR VOLUME 90 fl (80-97); PLATELET COUNT 255 10^3/uL (150-450); RED BLOOD COUNT 5.05 10^6/uL (3.72-5.28); RED CELL DISTRIBUTION WIDTH 12.7 % (11.5-14.0); TOTAL CELLS COUNTED % (AUTO) 100 %; WHITE BLOOD COUNT 12.7 10^3/uL (4.0-10.5)
[2018-12-15 19:33] LABS: AMORPHOUS SEDIMENT,URINE TRACE /HPF; APPEARANCE,URINE CLOUDY; BILIRUBIN,URINE NEGATIVE (NEGATIVE); GLUCOSE, URINE NEGATIVE (NEGATIVE); KETONES,URINE NEGATIVE (NEGATIVE); LEUKOCYTE ESTERASE,URINE SMALL (NEGATIVE); NITRITE,URINE POSITIVE (NEGATIVE); PROTEIN,URINE NEGATIVE (NEGATIVE); URINE SPECIFIC GRAVITY 1.018
[2018-12-15 19:35] LABS: COLOR,URINE YELLOW
[2018-12-15 19:45] LABS: ALKALINE PHOSPHATASE 77 U/L (38-126); ANION GAP 11 (5-19); ASPARTATE AMINO TRANSFERASE 18 U/L (14-36); BILIRUBIN,DIRECT 0.1 mg/dL (0.0-0.4); BILIRUBIN,TOTAL 0.6 mg/dL (0.2-1.3); BLOOD UREA NITROGEN 9 mg/dL (7-20); CALCIUM 10.3 mg/dL (8.4-10.2); CARBON DIOXIDE 26 mmol/L (22-30); CHLORIDE 104 mmol/L (98-107); GLUCOSE 97 mg/dL (75-110); POTASSIUM 3.4 mmol/L (3.6-5.0); TOTAL PROTEIN 7.9 g/dL (6.3-8.2)
--- NOTE | 2018-12-15 19:55 | RADIOLOGY REPORT (SQ) ---
EXAM DESCRIPTION: U/S ABDOMEN LTD W/DOPPLER COMPLETED DATE/TIME: 12/15/2018 7:43 pm REASON FOR STUDY: RUQ pain, N/V COMPARISON: 06/15/2017 TECHNIQUE: Dynamic and static grayscale images acquired of the abdomen and recorded on PACS. Savo tiffanie selected color Doppler and spectral images recorded. LIMITATIONS: None. FINDINGS: PANCREAS: No masses. Visualized pancreatic duct normal caliber. LIVER: No masses. Echotexture normal. LIVER VASCULATURE: Normal directional flow of the main portal vein and hepatic veins. GALLBLADDER: No stones. Normal wall thickness. No pericholecystic fluid. ULTRASOUND-DETECTED MATHIS'S SIGN: Negative. INTRAHEPATIC DUCTS AND COMMON DUCT: CBD and intrahepatic ducts normal caliber. No filling defects. INFERIOR VENA CAVA: Normal flow. AORTA: No aneurysm identified. RIGHT KIDNEY: Normal size. Normal echogenicity. No solid or suspicious masses. No hydronephros is. No calcifications. PERITONEAL AND RIGHT PLEURAL SPACE: No ascites or effusions. OTHER: No other significant findings. IMPRESSION: NO ACUTE FINDINGS. TECHNICAL DOCUMENTATION: JOB ID: [id number] [place]-72 2010 [employer]- All Rights Reserved Reading location - IP/workstation name: [email or web address]
[2018-12-15] MEDS ORDERED: FAMOTIDINE 20 MG TABLET PO ONE (20:58)
[2018-12-15] MEDS ORDERED: MAG HYDROX/AL HYDROX/SIMETH SUSP 30 ML UDCUP PO ONE (20:58)
[2018-12-15] MEDS ORDERED: METOCLOPRAMIDE HCL INJ/PF 10 MG/2 ML SDV IV ONE (20:58)
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
[2018-12-15 21:56] VITALS: BP 107/66
== END 2018-12-15 21:56 | disposition home or self-care (01) ==
LOC: ER 17:24
DX: N30.90 Cystitis, unspecified without hematuria (principal); R10.13 Epigastric pain; R10.11 Right upper quadrant pain; R10.817 Generalized abdominal tenderness; R11.2 Nausea with vomiting, unspecified; F17.200 Nicotine dependence, unspecified, uncomplicated; J45.909 Unspecified asthma, uncomplicated; Z90.710 Acquired absence of both cervix and uterus; Z87.442 Personal history of urinary calculi; Z85.43 Personal history of malignant neoplasm of ovary; Z88.5 Allergy status to narcotic agent; Z88.0 Allergy status to penicillin; Z88.8 Allergy status to other drugs, medicaments and biological substances
CPT/HCPCS: 36415; 83690; 85025; 81025; 80053; 81001; 76705; 93976; J2765; J2405; J7030; 96361; 96374; 96375; 99284

== ENCOUNTER 2019-09-09 17:29 | Emergency (ER) | payer SELFPAY ==
[2019-09-09] MEDS ORDERED: MORPHINE SULFATE 10 MG/ML INJ IV ONE (18:46)
[2019-09-09] MEDS ORDERED: ONDANSETRON HCL INJ/PF 4 MG/2 ML SDV IV ONE (18:46)
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
[2019-09-09 19:59] LABS: APPEARANCE,URINE CLEAR; BILIRUBIN,URINE NEGATIVE (NEGATIVE); COLOR,URINE YELLOW; GLUCOSE, URINE NEGATIVE (NEGATIVE); KETONES,URINE NEGATIVE (NEGATIVE); LEUKOCYTE ESTERASE,URINE TRACE (NEGATIVE); NITRITE,URINE NEGATIVE (NEGATIVE); PROTEIN,URINE 30 mg/dL (NEGATIVE); URINE SPECIFIC GRAVITY 1.021
[2019-09-09 20:49] LABS: ABSOLUTE BASOPHILS # (AUTO) 0.1 10^3/uL (0.0-0.2); ABSOLUTE EOSINOPHILS # (AUTO) 0.2 10^3/uL (0.0-0.6); ABSOLUTE LYMPHOCYTES (AUTO) 2.3 10^3/uL (0.5-4.7); ABSOLUTE MONOCYTES (AUTO) 0.6 10^3/uL (0.1-1.4); ABSOLUTE NEUT (AUTO) 5.4 10^3/uL (1.7-8.2); BASOPHILS % (AUTO) 0.7 % (0-2); EOSINOPHILS % (AUTO) 2.3 % (0-6); HEMATOCRIT 39.1 % (36.0-47.0); HEMOGLOBIN 13.3 g/dL (12.0-15.5); LYMPHOCYTES % (AUTO) 26.6 % (13-45); MEAN CORPUSCULAR HEMOGLOBIN 31.9 pg (27.0-33.4); MEAN CORPUSCULAR HGB CONC 33.9 g/dL (32.0-36.0); MEAN CORPUSCULAR VOLUME 94 fl (80-97); MONOCYTES % (AUTO) 6.5 % (3-13); PLATELET COUNT 216 10^3/uL (150-450); RED BLOOD COUNT 4.16 10^6/uL (3.72-5.28); RED CELL DISTRIBUTION WIDTH 13.7 % (11.5-14.0); SEGMENTED NEUTROPHILS % (AUTO) 63.9 % (42-78); TOTAL CELLS COUNTED % (AUTO) 100 %; WHITE BLOOD COUNT 8.5 10^3/uL (4.0-10.5)
[2019-09-09 21:06] LABS: ALBUMIN 4.3 g/dL (3.5-5.0); ALKALINE PHOSPHATASE 60 U/L (38-126); ANION GAP 8 (5-19); ASPARTATE AMINO TRANSFERASE 16 U/L (14-36); BILIRUBIN,TOTAL 0.3 mg/dL (0.2-1.3); BLOOD UREA NITROGEN 12 mg/dL (7-20); CALCIUM 9.7 mg/dL (8.4-10.2); CARBON DIOXIDE 27 mmol/L (22-30); CHLORIDE 103 mmol/L (98-107); GLUCOSE 88 mg/dL (75-110); POTASSIUM 4.3 mmol/L (3.6-5.0); TOTAL PROTEIN 6.8 g/dL (6.3-8.2)
--- NOTE | 2019-09-09 21:33 | RADIOLOGY REPORT (SQ) ---
EXAM DESCRIPTION: US PELVIS COMPLETED DATE/TME: 09/09/2019 18:46 CLINICAL HISTORY: 38 years, Female, pelvic pain hx of ovarian cyst COMPARISON: Prior CT from 07/07/2017 TECHNIQUE: Axial 2-D grayscale images of the pelvis were acquired. Doppler was utilized. LIMITATIONS: None. FINDINGS: Uterus is absent. The cervix measures 2.8 cm in length, closed. Nabothian cysts are evident, the largest of which measures 0.9 x 0.7 x 0.9 cm in size. The right ovary is absent. Left ovary measures 3.3 x 1.7 x 2.8 cm in size. It appears to contain a hypoechoic lesion measuring 1.7 x 0.9 x 1.4 cm in size. This is indeterminate. In addition, at the site of the patient's pain at the level of the left pubic body, there is an anechoic lesion measuring 2.4 x 1.6 x 2.6 cm in size which demonstrates posterior acoustic enhancement as well as imperceptible rm. This lesion is located just medial to the left common femoral vasculature. IMPRESSION: Indeterminate hypoechoic lesion located about the left ovary. For 1.7 cm indeterminate ovarian cyst, Recommend pelvic US follow-up in 6-12 weeks; if unchanged, continue follow-up with US OR MRI with IV contrast - if follow-up studies do not confirm endometrioma or dermoid, consider surgical evaluation. If cyst has internal nodule without blood flow/enhancing, recommend pelvic MRI with IV contrast or surgical evaluation. Reference: Radiology 2010 Sep;256(3):943-54 Indeterminate anechoic collection located about the left pelvic region just medial to the left common femoral vasculature which could indicate a fluid collection of indeterminate sterility. Correlate with physical examination and consider CT for further assessment. copyright 2010 [employer]- All Rights Reserved
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
[2019-09-09 23:30] VITALS: BP 101/55
[2019-09-09] MEDS ORDERED: ACETAMINOPHEN 325 MG TABLET PO ONE (23:30)
== END 2019-09-09 23:55 | disposition home or self-care (01) ==
LOC: ER 17:29
DX: R10.32 Left lower quadrant pain (principal); F17.210 Nicotine dependence, cigarettes, uncomplicated; Z87.442 Personal history of urinary calculi; Z88.6 Allergy status to analgesic agent; Z88.0 Allergy status to penicillin; Z85.43 Personal history of malignant neoplasm of ovary
CPT/HCPCS: 99284; 96374; 96375; 36415; 85025; 80053; 81001; 76856; 93976; J2270; J2405

== ENCOUNTER 2019-10-04 19:25 | Emergency (ER) | payer SELFPAY ==
[2019-10-04 19:33] VITALS: BP 102/64
[2019-10-04] MEDS ORDERED: OXYCODONE-ACETAMINOPHEN 5-325 MG TABLET PO ONE (20:17)
[2019-10-04] MEDS ORDERED: NORMAL SALINE 1000 ML 1,000 ML IV ONE (20:28)
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
[2019-10-04 22:24] LABS: APPEARANCE,URINE CLEAR; BILIRUBIN,URINE NEGATIVE (NEGATIVE); COLOR,URINE YELLOW; GLUCOSE, URINE NEGATIVE (NEGATIVE); KETONES,URINE NEGATIVE (NEGATIVE); LEUKOCYTE ESTERASE,URINE NEGATIVE (NEGATIVE); NITRITE,URINE NEGATIVE (NEGATIVE); PROTEIN,URINE NEGATIVE (NEGATIVE); URINE SPECIFIC GRAVITY 1.003; UROBILINOGEN,URINE NEGATIVE mg/dL (<2.0)
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
[2019-10-04 22:53] LABS: ALBUMIN 4.2 g/dL (3.5-5.0); ALKALINE PHOSPHATASE 95 U/L (38-126); ANION GAP 7 (5-19); ASPARTATE AMINO TRANSFERASE 61 U/L (14-36); BILIRUBIN,TOTAL 0.3 mg/dL (0.2-1.3); BLOOD UREA NITROGEN 5 mg/dL (7-20); CALCIUM 9.6 mg/dL (8.4-10.2); CARBON DIOXIDE 29 mmol/L (22-30); CHLORIDE 102 mmol/L (98-107); GLUCOSE 91 mg/dL (75-110); TOTAL PROTEIN 6.9 g/dL (6.3-8.2)
[2019-10-04] MEDS ORDERED: KETOROLAC TROMETHAMINE INJ/PF 30 MG/1 ML SDV IV ONE (23:59)
[2019-10-05 00:01] LABS: ABSOLUTE BASOPHILS # (AUTO) 0.1 10^3/uL (0.0-0.2); ABSOLUTE EOSINOPHILS # (AUTO) 0.2 10^3/uL (0.0-0.6); ABSOLUTE MONOCYTES (AUTO) 0.7 10^3/uL (0.1-1.4); ABSOLUTE NEUT (AUTO) 9.3 10^3/uL (1.7-8.2); BASOPHILS % (AUTO) 0.4 % (0-2); EOSINOPHILS % (AUTO) 1.6 % (0-6); HEMATOCRIT 41.2 % (36.0-47.0); LYMPHOCYTES % (AUTO) 16.2 % (13-45); MEAN CORPUSCULAR HEMOGLOBIN 32.3 pg (27.0-33.4); MEAN CORPUSCULAR HGB CONC 33.9 g/dL (32.0-36.0); MEAN CORPUSCULAR VOLUME 95 fl (80-97); MONOCYTES % (AUTO) 5.9 % (3-13); PLATELET COUNT 228 10^3/uL (150-450); RED BLOOD COUNT 4.33 10^6/uL (3.72-5.28); RED CELL DISTRIBUTION WIDTH 13.9 % (11.5-14.0); SEGMENTED NEUTROPHILS % (AUTO) 75.9 % (42-78); TOTAL CELLS COUNTED % (AUTO) 100 %; WHITE BLOOD COUNT 12.3 10^3/uL (4.0-10.5)
== END 2019-10-05 01:35 | disposition left against medical advice (07) ==
LOC: ER 19:25
DX: N83.202 Unspecified ovarian cyst, left side (principal); N94.89 Other specified conditions associated with female genital organs and menstrual cycle; R10.2 Pelvic and perineal pain; M25.552 Pain in left hip; J45.909 Unspecified asthma, uncomplicated; Z53.20 Procedure and treatment not carried out because of patient's decision for unspecified reasons
CPT/HCPCS: 99281; 96360; 36415; 85025; 80053; 81001; 72193; J7030

== ENCOUNTER 2019-11-06 19:04 | Emergency (ER) | payer SELFPAY | END 2019-11-06 20:25 | disposition left against medical advice (07) | LOC: ER 19:04 | DX: Z53.21 Procedure and treatment not carried out due to patient leaving prior to being seen by health care provider (principal); R11.2 Nausea with vomiting, unspecified; R19.7 Diarrhea, unspecified ==

== ENCOUNTER 2020-01-25 15:08 | Emergency (ER) | payer SELFPAY ==
[2020-01-25 15:24] VITALS: BP 97/68
[2020-01-25] MEDS ORDERED: ONDANSETRON HCL INJ/PF 4 MG/2 ML SDV IV ONE (16:10)
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
[2020-01-25 16:52] LABS: ABSOLUTE BASOPHILS # (AUTO) 0.1 10^3/uL (0.0-0.2); ABSOLUTE LYMPHOCYTES (AUTO) 1.4 10^3/uL (0.5-4.7); ABSOLUTE NEUT (AUTO) 10.2 10^3/uL (1.7-8.2); BASOPHILS % (AUTO) 0.8 % (0-2); EOSINOPHILS % (AUTO) 0.4 % (0-6); HEMATOCRIT 38.9 % (36.0-47.0); HEMOGLOBIN 13.8 g/dL (12.0-15.5); LYMPHOCYTES % (AUTO) 11.1 % (13-45); MEAN CORPUSCULAR HEMOGLOBIN 32.6 pg (27.0-33.4); MEAN CORPUSCULAR HGB CONC 35.4 g/dL (32.0-36.0); MEAN CORPUSCULAR VOLUME 92 fl (80-97); MONOCYTES % (AUTO) 7.8 % (3-13); PLATELET COUNT 247 10^3/uL (150-450); RED BLOOD COUNT 4.21 10^6/uL (3.72-5.28); RED CELL DISTRIBUTION WIDTH 12.9 % (11.5-14.0); SEGMENTED NEUTROPHILS % (AUTO) 79.9 % (42-78); TOTAL CELLS COUNTED % (AUTO) 100 %; WHITE BLOOD COUNT 12.8 10^3/uL (4.0-10.5)
[2020-01-25 17:13] LABS: ALBUMIN 4.2 g/dL (3.5-5.0); ALKALINE PHOSPHATASE 150 U/L (38-126); ANION GAP 10 (5-19); ASPARTATE AMINO TRANSFERASE 31 U/L (14-36); BILIRUBIN,DIRECT 0.4 mg/dL (0.0-0.4); BILIRUBIN,TOTAL 0.6 mg/dL (0.2-1.3); BLOOD UREA NITROGEN 9 mg/dL (7-20); CALCIUM 9.6 mg/dL (8.4-10.2); CARBON DIOXIDE 28 mmol/L (22-30); CHLORIDE 102 mmol/L (98-107); GLUCOSE 97 mg/dL (75-110); POTASSIUM 4.7 mmol/L (3.6-5.0); TOTAL PROTEIN 7.2 g/dL (6.3-8.2)
[2020-01-25 18:45] LABS: AMORPHOUS SEDIMENT,URINE TRACE /HPF; APPEARANCE,URINE TURBID; BILIRUBIN,URINE NEGATIVE (NEGATIVE); COLOR,URINE AMBER; GLUCOSE, URINE NEGATIVE (NEGATIVE); KETONES,URINE NEGATIVE (NEGATIVE); PROTEIN,URINE 30 mg/dL (NEGATIVE); URINE SPECIFIC GRAVITY 1.016
--- NOTE | 2020-01-25 19:44 | RADIOLOGY REPORT (SQ) ---
EXAM DESCRIPTION: CT ABD/PELVIS WITH IV ORAL IMAGES COMPLETED DATE/TIME: 01/25/2020 7:25 pm REASON FOR STUDY: abd pain, constipation, hx of SBO COMPARISON: 07/07/2017 TECHNIQUE: CT scan of the abdomen and pelvis performed using helical scanning technique with dynamic intravenous contrast injection. With oral contrast. Images reviewed with lung, soft tissue, and bon e windows. Reconstructed coronal and sagittal MPR images reviewed. Delayed images for evaluation of t he urinary system also acquired. All images stored on PACS. All CT scanners at this facility use dose modulation, iterative reconstruction, and/or weight based d osing when appropriate to reduce radiation dose to as low as reasonably achievable (ALARA). [facility]: Dose Right [facility]: CareDose [facility]: Dose Right [facility]: Teradose 4D [facility]: [employer] CONTRAST TYPE AND DOSE: contrast/concentration: Isovue 350.00 mmol/ml; Total Contrast Delivered: 68. 9 ml; Total Saline Delivered: 65.0 ml RENAL FUNCTION: GFR > 60. RADIATION DOSE: CT Rad equipment meets quality standard of care and radiation dose reduction techniq ues were employed. CTDIvol: 5.3 - 6.9 mGy. DLP: 641 mGy-cm.. LIMITATIONS: None. FINDINGS: LOWER CHEST: No significant findings. No nodules or infiltrates. LIVER: Normal size. No masses. No dilated ducts. SPLEEN: Normal size. No focal lesions. PANCREAS: No masses. No significant calcifications. No adjacent inflammation or peripancreatic fluid collections. Pancreatic duct not dilated. GALLBLADDER: No identified stones by CT criteria. No inflammatory changes to suggest cholecystitis. ADRENAL GLANDS: No significant masses or asymmetry. RIGHT KIDNEY AND URETER: No solid masses. No significant calcifications. No hydronephrosis or hyd roureter. LEFT KIDNEY AND URETER: No solid masses. No significant calcifications. No hydronephrosis or hydr oureter. AORTA AND VESSELS: No aneurysm. No dissection. Renal arteries, SMA, celiac without stenosis. RETROPERITONEUM: No retroperitoneal adenopathy, hemorrhage or masses. BOWEL AND PERITONEAL CAVITY: No masses or inflammatory changes. No free fluid or peritoneal masses. APPENDIX: Not visualized. PELVIS: No mass. No free fluid. Normal bladder. ABDOMINAL WALL: No masses. No hernias. BONES: No significant or acute findings. OTHER: No other significant finding. IMPRESSION: NO SIGNIFICANT OR ACUTE FINDING IN THE ABDOMEN OR PELVIS ON CT SCAN WITH IV CONTRAST. TECHNICAL DOCUMENTATION: JOB ID: [id number] Quality ID # [id number]: Final reports with documentation of one or more dose reduction techniques (e.g., Au tomated exposure control, adjustment of the mA and/or kV according to patient size, use of iterative reconstruction technique) 2010 [employer]- All Rights Reserved Reading location - IP/workstation name: [email or web address]
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
== END 2020-01-25 20:23 | disposition home or self-care (01) ==
LOC: ER 15:08
DX: R10.30 Lower abdominal pain, unspecified (principal); R11.2 Nausea with vomiting, unspecified; K59.00 Constipation, unspecified; Z88.1 Allergy status to other antibiotic agents; Z88.8 Allergy status to other drugs, medicaments and biological substances; Z79.899 Other long term (current) drug therapy; F17.200 Nicotine dependence, unspecified, uncomplicated; J45.909 Unspecified asthma, uncomplicated
CPT/HCPCS: 99285; 96374; 36415; 87086; 83690; 84703; 85025; 87088; 80053; 81001; 74177; J2405; 87186

== ENCOUNTER 2020-03-19 16:35 | Emergency (ER) | payer SELFPAY ==
[2020-03-19 18:07] LABS: VENOUS BLOOD BASE EXCESS 2.8 mmol/L; VENOUS BLOOD HCO3 29.3 mmol/L (20-32); VENOUS BLOOD PCO2 52.4 mmHg (35-63); VENOUS BLOOD PH 7.37 (7.30-7.42)
[2020-03-19 18:08] LABS: ABSOLUTE EOSINOPHILS # (AUTO) 0.1 10^3/uL (0.0-0.6); ABSOLUTE LYMPHOCYTES (AUTO) 1.7 10^3/uL (0.5-4.7); ABSOLUTE MONOCYTES (AUTO) 0.6 10^3/uL (0.1-1.4); ABSOLUTE NEUT (AUTO) 7.2 10^3/uL (1.7-8.2); BASOPHILS % (AUTO) 0.2 % (0-2); EOSINOPHILS % (AUTO) 0.8 % (0-6); HEMOGLOBIN 12.4 g/dL (12.0-15.5); LYMPHOCYTES % (AUTO) 17.9 % (13-45); MEAN CORPUSCULAR HEMOGLOBIN 32.5 pg (27.0-33.4); MEAN CORPUSCULAR HGB CONC 34.6 g/dL (32.0-36.0); MEAN CORPUSCULAR VOLUME 94 fl (80-97); MONOCYTES % (AUTO) 6.7 % (3-13); PLATELET COUNT 159 10^3/uL (150-450); RED BLOOD COUNT 3.84 10^6/uL (3.72-5.28); RED CELL DISTRIBUTION WIDTH 14.3 % (11.5-14.0); SEGMENTED NEUTROPHILS % (AUTO) 74.4 % (42-78); TOTAL CELLS COUNTED % (AUTO) 100 %; WHITE BLOOD COUNT 9.6 10^3/uL (4.0-10.5)
--- NOTE | 2020-03-19 18:11 | RADIOLOGY REPORT (SQ) ---
EXAM DESCRIPTION: CHEST SINGLE VIEW IMAGES COMPLETED DATE/TIME: 03/19/2020 6:03 pm REASON FOR STUDY: bed 6 sepsis protocol COMPARISON: Chest radiographs 07/30/2013 EXAM PARAMETERS: NUMBER OF VIEWS: One view. TECHNIQUE: Single frontal radiographic view of the chest acquired. RADIATION DOSE: NA LIMITATIONS: None. FINDINGS: LUNGS AND PLEURA: No opacities, masses or pneumothorax. No pleural effusion. MEDIASTINUM AND HILAR STRUCTURES: No masses. Contour normal. HEART AND VASCULAR STRUCTURES: Heart normal in size. Normal vasculature. BONES: No acute findings. HARDWARE: None in the chest. OTHER: No other significant finding. IMPRESSION: No acute pulmonary findings. TECHNICAL DOCUMENTATION: JOB ID: [id number] 2010 [employer]- All Rights Reserved Reading location - IP/workstation name: [email or web address]
[2020-03-19 18:16] LABS: INTERNATIONAL RATION (INR) 0.97; PROTHROMBIN TIME 13.1 SEC (11.4-15.4)
[2020-03-19 18:23] LABS: ALBUMIN 3.6 g/dL (3.5-5.0); ALKALINE PHOSPHATASE 77 U/L (38-126); ANION GAP 7 (5-19); ASPARTATE AMINO TRANSFERASE 17 U/L (14-36); BILIRUBIN,DIRECT 0.2 mg/dL (0.0-0.4); BILIRUBIN,TOTAL 0.3 mg/dL (0.2-1.3); BLOOD UREA NITROGEN 10 mg/dL (7-20); CALCIUM 8.9 mg/dL (8.4-10.2); CARBON DIOXIDE 29 mmol/L (22-30); CHLORIDE 101 mmol/L (98-107); GLUCOSE 98 mg/dL (75-110); POTASSIUM 3.8 mmol/L (3.6-5.0); TOTAL PROTEIN 6.2 g/dL (6.3-8.2)
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
[2020-03-19] MEDS ORDERED: NORMAL SALINE 1000 ML 1,000 ML IV ONE (20:33)
[2020-03-19] MEDS ORDERED: DEXAMETHASONE SOD PHOS INJ 10 MG/1 ML VIAL IV ONE (20:33)
[2020-03-19] MEDS ORDERED: KETOROLAC TROMETHAMINE INJ/PF 30 MG/1 ML SDV IV ONE (20:34)
[2020-03-19 22:11] VITALS: BP 106/78
--- NOTE | 2020-03-20 00:25 | EKG REPORT ---
SEVERITY:- NORMAL ECG - SINUS RHYTHM : Confirmed by: Sandee Wright 20-Mar-2020 00:24:13
== END 2020-03-19 22:12 | disposition home or self-care (01) ==
LOC: ER 16:35
DX: U07.1 COVID-19 (principal); R05 Cough; R53.1 Weakness; R52 Pain, unspecified; F17.200 Nicotine dependence, unspecified, uncomplicated; J45.909 Unspecified asthma, uncomplicated; Z79.899 Other long term (current) drug therapy; Z85.43 Personal history of malignant neoplasm of ovary; Z88.6 Allergy status to analgesic agent; Z88.5 Allergy status to narcotic agent; Z88.0 Allergy status to penicillin; Z88.8 Allergy status to other drugs, medicaments and biological substances
CPT/HCPCS: 93005; 99285; 96361; 96374; 96375; 36415; 87040; 83605; 85025; 85610; 80053; 84484; 82803; 71045; 93010; J1885; J7030; J1100

== ENCOUNTER 2020-04-05 20:27 | Emergency (ER) | payer SELFPAY ==
[2020-04-05 20:37] VITALS: BP 110/74
== END 2020-04-05 21:10 | disposition left against medical advice (07) ==
LOC: ER 20:27
DX: Z53.21 Procedure and treatment not carried out due to patient leaving prior to being seen by health care provider (principal)

== ENCOUNTER 2020-04-05 23:29 | Emergency (ER) | payer SELFPAY ==
[2020-04-06] LABS: ABSOLUTE BASOPHILS # (AUTO) 0.1 10^3/uL (0.0-0.2); ABSOLUTE EOSINOPHILS # (AUTO) 0.1 10^3/uL (0.0-0.6); ABSOLUTE LYMPHOCYTES (AUTO) 1.6 10^3/uL (0.5-4.7); ABSOLUTE MONOCYTES (AUTO) 0.9 10^3/uL (0.1-1.4); ABSOLUTE NEUT (AUTO) 8.5 10^3/uL (1.7-8.2); BASOPHILS % (AUTO) 0.6 % (0-2); EOSINOPHILS % (AUTO) 1.1 % (0-6); HEMATOCRIT 36.7 % (36.0-47.0); HEMOGLOBIN 12.5 g/dL (12.0-15.5); MEAN CORPUSCULAR HEMOGLOBIN 31.6 pg (27.0-33.4); MEAN CORPUSCULAR HGB CONC 34.1 g/dL (32.0-36.0); MEAN CORPUSCULAR VOLUME 93 fl (80-97); MONOCYTES % (AUTO) 8.3 % (3-13); PLATELET COUNT 281 10^3/uL (150-450); RED BLOOD COUNT 3.97 10^6/uL (3.72-5.28); RED CELL DISTRIBUTION WIDTH 14.2 % (11.5-14.0); TOTAL CELLS COUNTED % (AUTO) 100 %; WHITE BLOOD COUNT 11.1 10^3/uL (4.0-10.5)
[2020-04-06 00:16] LABS: ACETAMINOPHEN < 10 ug/mL (10-30); ALBUMIN 3.7 g/dL (3.5-5.0); ALCOHOL < 10 mg/dL (NONE DETECTED); ALKALINE PHOSPHATASE 102 U/L (38-126); ANION GAP 5 (5-19); ASPARTATE AMINO TRANSFERASE 31 U/L (14-36); BILIRUBIN,DIRECT 0.1 mg/dL (0.0-0.4); BILIRUBIN,TOTAL 0.5 mg/dL (0.2-1.3); BLOOD UREA NITROGEN 4 mg/dL (7-20); CALCIUM 9.4 mg/dL (8.4-10.2); CARBON DIOXIDE 28 mmol/L (22-30); CHLORIDE 106 mmol/L (98-107); GLUCOSE 91 mg/dL (75-110); POTASSIUM 3.8 mmol/L (3.6-5.0); SALICYLATE < 1.0 mg/dL (2.0-20.0); TOTAL PROTEIN 6.5 g/dL (6.3-8.2)
[2020-04-06 00:40] LABS: AMORPHOUS SEDIMENT,URINE TRACE /HPF; APPEARANCE,URINE SLIGHTLY-CLOUDY; BILIRUBIN,URINE NEGATIVE (NEGATIVE); COLOR,URINE YELLOW; GLUCOSE, URINE NEGATIVE (NEGATIVE); KETONES,URINE NEGATIVE (NEGATIVE); LEUKOCYTE ESTERASE,URINE LARGE (NEGATIVE); NITRITE,URINE POSITIVE (NEGATIVE); PROTEIN,URINE NEGATIVE (NEGATIVE); URINE SPECIFIC GRAVITY 1.008; UROBILINOGEN,URINE NEGATIVE mg/dL (<2.0)
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
[2020-04-06] MEDS ORDERED: LIDOCAINE 1% INJ-PF (10 MG/ML) 30 ML SDV INJ ONE (00:52)
[2020-04-06] MEDS ORDERED: DIPH/PERTUSS(ACELL)/TETANUS VAC/PF 0.5 ML SYR (>=10YO) IM ONE (00:52)
[2020-04-06 01:25] LABS: URINE AMPHETAMINES SCREEN NEGATIVE; URINE BARBITURATES SCREEN NEGATIVE; URINE COCAINE SCREEN NEGATIVE; URINE MARIJUANA (THC) SCREEN NEGATIVE; URINE METHADONE SCREEN NEGATIVE; URINE PHENCYCLIDINE SCREEN NEGATIVE
[2020-04-06 01:26] LABS: URINE BENZODIAZEPINES SCREEN UNCONFIRMED POSITIVE
[2020-04-06] MEDS: SULFAMETHOXAZOLE/TRIMETHOPRIM 800-160 MG TABLET PO SCH ×2 (10:08→17:49)
--- NOTE | 2020-04-06 11:45 | EKG REPORT ---
SEVERITY:- NORMAL ECG - SINUS RHYTHM : Confirmed by: Tor Sanders MD 06-Apr-2020 11:44:40
--- NOTE | 2020-04-06 15:10 | PSYCHOLOGICAL NOTE ---
Psych Note - Psych Note Date seen by psych provider: 04/06/20 Time seen by psych provider: 11:10 Psych Note: Reason for Consult:Suicidal ideation with attempt Consent Permissions: only Patient arrived to [facility] ED via EMS after cutting her wrists. She reported it was sujey that the test bore helper were at her home last night when she arrived because she was "going to kill my sister..I mean it I was going to fuckin kill her." She reported her sister is accusing her of intentionally overdosing with her mother. 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 She continued to disclose she lost her father a few years ago and now does not even know if her mother is or alive. She continue to report that is why she cut her wrists, disclosing she no longer wants to be living. She discloses that she does not understand how people can be so mean and no longer wants to be part of "a world like this I does want to be with my mom and dad I do not want to be living anymore." Patient discloses that she is on psychiatric medications however reports that she was ran out. She has an outpatient mental health provider with [facility]. Patient reports she wants to be discharged to go home. Patient is alert and orientated to person, place, time and circumstance. Mood fluctuates between anger and dysphoric with tearful affect. Patient presented after engaging in self-harm cutting to both wrists. She continues to disclose suicidal ideation. Patient made passive homicidal comments. Delusions are absent and behaviors congruent with an intact reality based presentation i.e. organized and linear thought process. Eye contact is poor. Conversational speech is tearful however easily understood. Intellectual abilities appear to be with average range. Attention and concentration is fair. Insight, judgment, impulse control is poor. 1120 Clinician updated charge, attending nurse, and attending medical provider about the need for stabilization and probable unlikely placement ability so to patient's COVID + status. 1151 Clinician was notified by attending nurse patient attempted to elope; she got to the parking lot but was able to be re-directed into the ED. Clinician spoke with charge about the possible need for restraints to keep staff and patient safe. 1433 Clinician was notified by attending nurse the patient attempted to hang herself with bed sheet in room. Once it was removed from her neck, her room was being cleaned (due to her lunch tray being spilled) when patient attempted to tie the bed sheet around her neck again and purposely reopened her stitches. Clinician spoke again with charge about the possible need for restraints to keep staff and patient safe. Clinician confirmed with attending nurse that attending medical provider was notified of attempt with sheet being tied around neck. 1830 Clinician was rounding when observed multiple staff in patient's room. The patient was attempting to harm herself again. She is tearing strips of her scrubs off and tieing them in a rope form. Patient was also placing scrub pieces in her mouth and attempting to reopen her stitches again. Patient was placed in 4 pt restraints by medical staff. Dr. Dove was updated on patient's status. IVC Criteria per [place] GS 122C Dangerous to others Within the relevant past the individual YES has inflicted or attempted to inflict or threatened to inflict serious bodily harm on another AND No that there is a reasonable probability that this conduct will be repeated as there is an absence of supervision or structure to prevent. Patient made homicidal comment that was passive (ie no plans means or intent). OR No has acted in such a way as to create a substantial risk of serious bodily harm to another AND No that there is a reasonable probability that this conduct will be repeated as there is an absence of supervision or structure to prevent. OR No has engaged in extreme destruction of property AND NO that there is a reasonable probability that this conduct will be repeated as there is an absence of supervision or structure to prevent. Previous episodes of dangerousness to others, when applicable, may be considered when determining reasonable probability of future dangerous conduct. Clear, cogent, and convincing evidence that an individual has committed a homicide in the relevant past is prima facie evidence of dangerousness to others. Dangerous to self Within the relevant past the individual has done any of the following: acted in such a way as to show ALL of the following: No The individual would be unable without care, supervision, and the continued assistance of others not otherwise available, to exercise self- control, judgment, and discretion in the conduct of the individual's daily responsibilities and social relations or to satisfy the individual's need for nourishment, personal or medical care, halfway, or self-protection and safety. AND No There is a reasonable probability of the individual suffering serious physical debilitation within the near future unless adequate treatment is given. A showing of behavior that is grossly irrational, of actions that the individual is unable to control, of behavior that is grossly inappropriate to the situation, or of other evidence of severely impaired insight and judgment shall create a prima facie inference that the individual is unable to care for himself or herself. OR YES has attempted suicide or threatened suicide AND YES that there is a reasonable probability of suicide unless adequate treatment is given as there is an absence of supervision or structure to prevent suicide of patient who has made an attempt, serious gesture or threat. Patient presented after engaging in a suicide attempt of cutting wrists. Patient continues to report suicidal ideation. She is tearful with acute distress in connection to family discord OR No has mutilated himself or herself or attempted to mutilate himself or herself AND No that there is a reasonable probability of serious self-mutilation unless adequate treatment is given as there is an absence of supervision or structure to prevent. NOTE: Previous episodes of dangerousness to self, when applicable, may be considered when determining reasonable probability of physical debilitation, suicide, or self-mutilation. Medication recommendations per [facility]'s contracted psychiatric are as follows: Zyprexa 2.5mg twice daily Depakote 250mg twice daily Thorazine 50mg every 8 hours as needed Impression/Plan: Patient is recommended for IVC; paperwork is signed, faxed to private branch exchange service adviser and placed in patient's chart. Patient presented to [facility] ED after cutting both wrists. Patient continues to report not wanting to live anymore and stated that if the police were not at her house last night when she arrived home, she would have killed her sister. She reports her mother is currently admitted to the hospital, but she cannot get any information because her sister accused her of intentional overdoing their mother on Tylenol. She denies this. 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 She reported she is upset that she cannot get any information and does not even know if she (her mother) is still alive. She stated she just can't do it anymore, "people are so mean and I just want to be with my father (whom a few years ago) and my mother." Patient is tearful and states she wants to leave [facility] and go home. Patient has an outpatient mental health provider, but reported she is out of her medications. Patient is currently a danger to herself and others. Dr. Dove was consulted on the care and management of this patient; attending physician is in agreement with recommendations and disposition. Case management: Di Mcdonald; [phone] @1351- No COVID + [place]; [phone] @1352- No COVID + [place]; [phone] @ 1352 No COVID + [place]; [phone] @ 1354 No COVID + [facility]; [phone] @1355 No COVID + [facility]; [phone] @1402- limited number of COVID beds, currently there is a wait list [facility]; [phone] @1404- No Answer, unable to leave message [facility]; [phone] @1405- No Answer, unable to leave message [facility]; [phone] @ 1408- No COVID + [facility]; [phone] @ 1409- No COVID + [facility]; [phone] @1411- No COVID + [facility]; [phone] @1412- No Answer, unable to leave message [facility]; [phone] @1423- No COVID + [place]; [phone] @ 1426- No COVID +
[2020-04-06] MEDS ORDERED: LORAZEPAM INJ 2 MG/1 ML VIAL IM ONE (18:35)
[2020-04-06] MEDS ORDERED: DIPHENHYDRAMINE HCL 50 MG/ML VIAL IM ONE (18:35)
[2020-04-06] MEDS ORDERED: HALOPERIDOL LACTATE INJ 5 MG/1 ML VIAL IM ONE (18:35)
--- NOTE | 2020-04-06 18:38 | ER Document Report ---
Doctor's Note Notes: 04/06/20 18:37 I saw and evaluated patient yesterday, I reviewed the notes and apparently she is now under IVC by psych. Patient has had multiple attempts at escaping from the emergency department today. She recently just attempted to leave and was able to be apprehended by security. She exhibits violent and dangerous b ehavior. Apparently she has attempted to hang herself today with bedsheet. I have ordered sedative medication along with restraints as she is violent and a danger to herself and others. Nursing is aware. We will continue to monitor while in strengths and take off as soon as possible. Have ordered a monitor car operator after Haldol/Ativan/Benadryl have been given.
[2020-04-06] MEDS ORDERED: ZIPRASIDONE MESYLATE INJ/PF 20 MG SDV IM ONE (18:59)
--- NOTE | 2020-04-06 19:35 | ER Document Report ---
Doctor's Note Notes: 04/06/20 19:28 Patient's IVC papers completed this morning by myself and Dr. Galicia and notarized. Patient had episodes for shift of attempting to elope and then soon after attempted to hang herself with a bed sheet wrapped around a wall hook. This was immediately seen by staff and security and she bed sheet was removed and patient was in no further distress- no signs of neck injury, hypoxia, or difficulty swallowing. pt did tear break a suture in her wrist which the RN provided wound care and bandaged. Psych evaluated patient and has called over 13 facilities all of whom are not willing to accept Covid positive inpatient. Psychiatry evaluated the patient and will be starting Zyprexa 2.5 mg twice daily, Depakote 250 mg twice daily and Thorazine 50 mg every 8 H as needed. Current plan is to hopefully stabilize patient with medications possibly discharge eventually- unless a facility will agree to accept pt. PT is medically cleared.
--- NOTE | 2020-04-06 19:46 | ER Document Report ---
Doctor's Note Notes: 04/06/20 19:44 Pt attempted to elope from ER again around 1830 tonight. PT medicated by Dr Yovany bradshaw/ maddie, letitia, and doni. Pt is currently sleeping. pt on monitor and stable.
[2020-04-06] MEDS: OLANZAPINE 2.5 MG TABLET PO SCH (20:03)
[2020-04-06] MEDS: DIVALPROEX SODIUM 250 MG TAB.SR.24H PO SCH (20:04)
[2020-04-06] MEDS: CHLORPROMAZINE HCL 50 MG TABLET PO PRN (20:43)
[2020-04-07] MEDS ORDERED: ONDANSETRON 4 MG TAB.RAPDIS PO ONE (04:09)
[2020-04-07] MEDS ORDERED: IBUPROFEN 800 MG TABLET PO ONE (05:57)
[2020-04-07] MEDS ORDERED: NICOTINE 14 MG/24 HR PATCH.TD24 TD ONE (06:03)
[2020-04-07] MEDS: SULFAMETHOXAZOLE/TRIMETHOPRIM 800-160 MG TABLET PO SCH ×2 (10:01→18:22)
[2020-04-07] MEDS: OLANZAPINE 2.5 MG TABLET PO SCH ×2 (10:01→18:22)
[2020-04-07] MEDS: DIVALPROEX SODIUM 250 MG TAB.SR.24H PO SCH ×2 (10:01→18:22)
[2020-04-07] MEDS ORDERED: IBUPROFEN 600 MG TABLET PO ONE (14:02)
[2020-04-07] MEDS ORDERED: PROMETHAZINE HCL 25 MG TABLET PO ONE (14:03)
[2020-04-07] MEDS: CHLORPROMAZINE HCL 50 MG TABLET PO PRN ×2 (14:11→21:44)
--- NOTE | 2020-04-07 15:12 | PSYCHOLOGICAL NOTE ---
<CYNDI KIM - Last Filed: 04/08/20 17:19> Psych Note - Psych Note Date seen by psych provider: 04/07/20 Time seen by psych provider: 10:15 - 1030 Psych Note: Reason for Consult:Suicidal ideation with attempt Consent Permissions: only Patient arrived to [facility] ED via EMS after cutting her wrists. Check in conducted with patient: Patient is noted to be crying upon clinicians entry to room. Patient states t hat she just spoke with her on the phone; however, does not disclose topic of conversation. Patient very fixated on when she can leave. Clinician explained the concern that patient arrived after suicide attempt with additional attempts throughout the day. Patient increases in tearful affect. Patient reports she was made promises yesterday that were not upheld. Clinician asked what these were. Patient reports that she was promised a shower, an update on her mother, and a nicotine patch. Clinician explained that any updates on family members (if they are in a hospital) must go through proper HIPPA protocol. As for the patient's shower, this was unable to be provided do to patient's behaviours yesterday. Patient does confirm she has a nicotine patch now. Patient requests plan of care. Clinician explained medication stabilization is currently being worked on. Patient is currently under involuntary commitment; however, due to her current Covid + status, placement is currently difficult. Currently there is only one hospital that accepts Covid + patients i.e. [place]. Patient confirms she understands. It was explained to the patient concern with patient's presentations after each phone call to family i.e. dysphoria, tearful affect, yesterday multiple suicide attempts. Patient is told at this time, for therapeutic purposes, patient will no longer be able to receive or make phone calls. Patient confirms she understands. Medication recommendations per [facility]'s contracted psychiatric are as follows: Zyprexa 2.5mg twice daily Depakote 250mg twice daily Thorazine 50mg every 8 hours as needed Impression/Plan: Patient is recommended for continued IVC. Patient presented to [facility] ED after cutting both wrists. Patient continues to present tearful and states she wants to leave [facility] and go home. Yesterday, she had multiple suicide attempts while in [facility] ED in addition to attempting to elope. Patient is currently a danger to herself and others. Dr. Dove was consulted on the care and management of this patient; attending physician is in agreement with recommendations and disposition. <ARIE DOVE - Last Filed: 04/09/20 09:48> Psych Note - Psych Note Psych Note: Matilde Salazar, Risk Management, was contacted regarding Patient's multiple suicide attempts and elopements, and overall situation. Advised clinical need and recommendation to put in place telephone restrictions given patient's increased behavior following phone conversation and family situation. Matilde was in agreement with this recommendation from a risk management perspective.
--- NOTE | 2020-04-07 20:25 | ER Document Report ---
Doctor's Note Notes: 04/07/20 20:23 HPI: Pt resting quietly in room. no complaints today. no episodes of tying to elope or hang herself w/ a bedsheet. n Physical exam: most recent vital signs reviewed in chart and stable Eavxlvi-myon-myxibcozv, NAD CV- RRR, no m/r/g Resp- even and unlabored Psych-alert, oriented X 4. A/P: I assessed the patient's labs, vitals, and records. No concerning findings this morning. Patient denies any acute complaints. Patient is cleared for disposition by psychiatry
[2020-04-07] MEDS ORDERED: GUAIFENESIN/D-METHORPHAN (200-20 MG) SYRUP 10 ML PO ONE (23:38)
[2020-04-07] MEDS ORDERED: MELATONIN 5 MG TABLET PO ONE (23:39)
[2020-04-08] MEDS: CHLORPROMAZINE HCL 50 MG TABLET PO PRN ×2 (08:00→19:54)
[2020-04-08] MEDS: OLANZAPINE 2.5 MG TABLET PO SCH ×2 (11:40→19:52)
[2020-04-08] MEDS: DIVALPROEX SODIUM 250 MG TAB.SR.24H PO SCH ×2 (11:41→19:52)
[2020-04-08] MEDS: SULFAMETHOXAZOLE/TRIMETHOPRIM 800-160 MG TABLET PO SCH ×2 (11:41→19:52)
[2020-04-08] MEDS ORDERED: IBUPROFEN 800 MG TABLET PO ONE ×2 (15:28→20:51)
[2020-04-08] MEDS ORDERED: PROMETHAZINE HCL 25 MG TABLET PO ONE (15:34)
--- NOTE | 2020-04-08 15:34 | ER Document Report ---
Doctor's Note Notes: 04/08/20 15:34 Patient's vital signs and previous labs, diagnostic images reviewed. Reviewed mental health notes, nurse's notes and previous providers notes. VSS. Pt is in no distress at this time. Denies any SI or HI. General: A&Ox3. Answers questions appropriately. Heart: RRR Lungs: CTAB Psych: Flat affect A/P: Continue monitoring and rec's per MH. Normal diet plan:continue to monitor
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
--- NOTE | 2020-04-08 17:19 | PSYCHOLOGICAL NOTE ---
Psych Note - Psych Note Date seen by psych provider: 04/08/20 Time seen by psych provider: 12:00 Psych Note: Reason for Consult:Suicidal ideation with attempt Consent Permissions: , sister and mother Patient arrived to [facility] ED via EMS after cutting her wrists. Check in conducted with patient: Patient reports she is feeling better than before. She confirms she asked for her PRN medication this morning because she was feeling anxious. She believes the current medications seem to help her mood better; "I am still having my little emotions....I took off my bandages today cause they felt tight and sat here and cried because I was so stupid...but I think this medicine is controlling my mood better." She disclosed she is still very worried about her mother, not knowing if she is or alive. She reports she would like to talk to her sister, even though she identifies her sister as the trigger to recent events. Patient identifies having a new grandchild with another on the way and wants to be able to go home for them. Patient provided sisters contact information: Alice [phone]. Patient also stated she would like to add her mother to her permission list. Behavioral Health Team received collateral from patient's ; please see separate note. Medication recommendations per [facility]'s contracted psychiatric are as follows: Zyprexa 2.5mg twice daily Depakote 250mg twice daily Thorazine 50mg every 8 hours as needed Impression/Plan: Patient is recommended for continued IVC. Patient presented to [facility] ED after cutting both wrists. Patient has started to show improvement. There is still concern the patient had so recently attempted to harm herself multiple times. Patient is asking to talk to her sister, this request is under review with the behavioral health team. There is concerns the trigger to recent events stems from her sister and family events. Dr. Dove was consulted on the care and management of this patient; attending physician is in agreement with recommendations and disposition.
[2020-04-08] MEDS ORDERED: BENZOCAINE/MENTHOL SORE THROAT LOZENGE BUCCAL ONE (20:47)
[2020-04-08] MEDS ORDERED: GUAIFENESIN SYRP 200 MG/10 ML UDC PO ONE (20:50)
[2020-04-08] MEDS ORDERED: MELATONIN 5 MG TABLET PO ONE (20:50)
[2020-04-09] MEDS: DIVALPROEX SODIUM 250 MG TAB.SR.24H PO SCH ×2 (09:46→18:21)
[2020-04-09] MEDS: OLANZAPINE 2.5 MG TABLET PO SCH ×2 (09:47→18:21)
--- NOTE | 2020-04-09 12:01 | ER Document Report ---
Doctor's Note Notes: 04/09/20 11:50 Patient evaluated at bedside, she is alert, well-appearing, calm, cooperative. She says she has an occasional coughing episode but otherwise she feels fine. She denies fever/chills. Clear lungs on evaluation, soft abdomen. Vital signs this morning are unremarkable. However urinalysis shows infection including positive nitrites, urine culture shows ESBL infection. There is shown sensitivity to Bactrim however and she will be started on this. I discussed this with patient. Patient states that she has had repeated UTIs in the past. She has no other complaints. Mental health team reported complication that patient is positive for COVID-19, this has delayed her placement, currently attempting to get her into [facility]. Patient remains medically cleared, I do not see evidence of sepsis or concerning COVID-19 infection on her evaluation.
[2020-04-09] MEDS: SULFAMETHOXAZOLE/TRIMETHOPRIM 800-160 MG TABLET PO SCH ×2 (12:42→18:20)
[2020-04-09] MEDS: CHLORPROMAZINE HCL 50 MG TABLET PO PRN (13:36)
[2020-04-09] MEDS ORDERED: PHENAZOPYRIDINE HCL 200 MG TABLET PO ONE ×2 (14:41→17:57)
--- NOTE | 2020-04-09 17:52 | PSYCHOLOGICAL NOTE ---
Psych Note - Psych Note Date seen by psych provider: 04/09/20 Time seen by psych provider: 12:06 Psych Note: Reason for Consult: suicidal ideation, homicidal ideation Re-eval [id number] Patient was re-evaluated in the ED. She was re-explained what being on a full IVC looked like and was informed her referral had been sent to inpatient facilities. Patient reported she was in the ED because, I guess I was giving my mom too much medication. I was not the only one doing it. My mom has a roommate who was also giving her medicine and communication was lost. Patient reports giving her mother extra medication. She reports giving extra Tylenol and Xanax because she was running a fever and had issues breathing and reports she did it to try and help mother feel better. Patient denies suicidal and homicidal ideations, plan, and intent. She reports she attempted to harm herself in the ED because her mother was sick. When asked how her hurting herself would help, she stated she was accused of hurting her mother on purpose and was upset. She reports feeling better, but feels like she wants to cry, but cannot cry. Medication recommendations per [facility] contracted psychiatric are as follows: (continue from 04.08.2020) Zyprexa 2.5mg twice daily Depakote 250mg twice daily please run a Depakote level on patient Thorazine 50mg every 8 hours as needed Impression/ Plan: Patient is recommended for continued IVC. Her referral has been sent out and waiting for [facility] to review her packet. Patient presented to [facility] ED after cutting both wrists. Patient has started to show improvement. There is still concern the patient had so recently attempted to harm herself multiple times while in the ED. At this time, patient is not allowed phone privileges due to family being a stressor to her. Dr. Dove was consulted on the care and management of this patient; attending physician is in agreement with recommendations and disposition.
[2020-04-09] MEDS ORDERED: NICOTINE 14 MG/24 HR PATCH.TD24 TD ONE (18:11)
[2020-04-09] MEDS ORDERED: DIPHENHYDRAMINE HCL 25 MG CAPSULE PO ONE (23:52)
[2020-04-10] MEDS: DIVALPROEX SODIUM 250 MG TAB.SR.24H PO SCH ×2 (10:22→19:46)
[2020-04-10] MEDS: OLANZAPINE 2.5 MG TABLET PO SCH ×2 (10:23→19:46)
[2020-04-10] MEDS: SULFAMETHOXAZOLE/TRIMETHOPRIM 800-160 MG TABLET PO SCH ×2 (10:23→19:49)
[2020-04-10] MEDS ORDERED: IBUPROFEN 600 MG TABLET PO ONE (11:16)
[2020-04-10] MEDS ORDERED: PROMETHAZINE HCL 25 MG TABLET PO ONE (11:16)
--- NOTE | 2020-04-10 11:18 | ER Document Report ---
Doctor's Note Notes: 04/10/20 11:17 Reevaluated patient bedside. She is very friendly, coherent, although she is stating she wants to go home. She has been cooperative since yesterday. Additional research shows that patient was initially on Bactrim, we will repeat a urine and if her urine is negative Bactrim will be discontinued. Patient s tated she has a headache which is mild, she states it is because she has been tugging at the knots in her hair. She is requesting something for her headache. She denies any other complaints. Physical exam otherwise unremarkable. Vital signs repeated within the past hour and are unremarkable. She remains medically clear.
[2020-04-10 15:45] LABS: APPEARANCE,URINE SLIGHTLY-CLOUDY; BILIRUBIN,URINE NEGATIVE (NEGATIVE); COLOR,URINE AMBER; GLUCOSE, URINE NEGATIVE (NEGATIVE); KETONES,URINE NEGATIVE (NEGATIVE); LEUKOCYTE ESTERASE,URINE NEGATIVE (NEGATIVE); NITRITE,URINE POSITIVE (NEGATIVE); PROTEIN,URINE 30 mg/dL (NEGATIVE); URINE SPECIFIC GRAVITY 1.015
[2020-04-10] MEDS ORDERED: FLUCONAZOLE 100 MG TABLET PO ONE (18:18)
[2020-04-10] MEDS ORDERED: NICOTINE 14 MG/24 HR PATCH.TD24 TD ONE (18:19)
--- NOTE | 2020-04-10 20:23 | PSYCHOLOGICAL NOTE ---
Psych Note - Psych Note Date seen by psych provider: 04/10/20 Time seen by psych provider: 14:02 Psych Note: [id number] Re-eval Consent permissions: Zayda Solorzano, daughter, ; consent is no longer allowed for sister Patient was re-evaluated in the emergency department today. Patient presents with euthymic mood. She reports feeling better. She became sad when told she was still under full IVC, but reacted appropriately. Patient reports she plans to move in with her in-laws when she is discharged and not move back in with her mother. She reports still planning to help her mother during the day, but states she will not be living there. She states she talked to her and he is in agreeance. Collateral: [id number] Zayda agrees to be able to grape picker patient tomorrow if needed. She states she was able to speak to patient earlier. Notes if is unable to grape picker she is available. She agrees that patient will be staying at in laws house when she is discharged and not going back to her mothers house. Zayda reports patient does not want hospital to speak to patients sister. Medication recommendations per [facility]'s contracted psychiatric are as follows: (continue from 04.08.2020) Zyprexa 2.5mg twice daily Depakote 250mg twice daily please run a Depakote level on patient Thorazine 50mg every 8 hours as needed Impression/ Plan: Patient is recommended for continued IVC. Her referral has been sent out and waiting for [facility] to review her packet. At this time there has been no acceptance or denials. Patient has a pending Depakote level taking place and will re assess in the morning. Patient presented to [facility] ED after cutting both wrists. Patient continues to show improvement. There is still concern the patient had attempted to harm herself multiple times while in the ED. Dr. Dove was consulted on the care and management of this patient; attending physician is in agreement with recommendations and disposition.
[2020-04-10] MEDS ORDERED: MELATONIN 5 MG TABLET PO ONE (22:01)
[2020-04-10] MEDS ORDERED: DIPHENHYDRAMINE HCL 25 MG CAPSULE PO ONE (22:01)
[2020-04-11] MEDS ORDERED: HYDROCODONE BIT/HOMATROPINE 5-1.5 MG TABLET PO ONE (01:40)
[2020-04-11] MEDS ORDERED: BENZONATATE 100 MG CAPSULE PO ONE (01:49)
--- NOTE | 2020-04-11 02:31 | RADIOLOGY REPORT (SQ) ---
EXAM DESCRIPTION: X-ray single view chest. CLINICAL HISTORY: 39 years Female, inc cough COMPARISON: 03/19/2020 TECHNIQUE: Single portable x-ray view of the chest performed on 04/11/2020 at 2:06 AM FINDINGS: The lungs are well expanded and are clear. There is no evidence of a pneumothorax. The cardiac silhouette is normal in size and configuration. The mediastinal contours are normal. No acute osseous abnormality is identified. No acute soft tissue abnormalities are seen. Lines and tubes: None. IMPRESSION: No evidence of acute intrathoracic disease.
--- NOTE | 2020-04-11 09:25 | ER Document Report ---
Doctor's Note Notes: 04/11/20 09:23 Patient is calm, alert, well-appearing. 7 days past since patient had sutures for her lacerations to her wrist from her self-harm, wounds appear healed and sutures were removed by me (a total of 5 sutures removed). No dressings required. Patient has no current complaints, no current symptoms, she was posi tive for COVID-19 but she states her symptoms initially started weeks ago in March. I suspect she was simply still positive. Patient denies SI or HI, states she is hoping to go home today. Pending disposition by mental health team, patient remains medically cleared.
[2020-04-11] MEDS: OLANZAPINE 2.5 MG TABLET PO SCH ×2 (09:47→17:09)
[2020-04-11] MEDS: DIVALPROEX SODIUM 250 MG TAB.SR.24H PO SCH ×2 (09:48→17:09)
[2020-04-11] MEDS ORDERED: NICOTINE 14 MG/24 HR PATCH.TD24 TD ONE (10:56)
[2020-04-11 17:23] VITALS: BP 113/73
--- NOTE | 2020-04-11 23:55 | PSYCHOLOGICAL NOTE ---
Psych Note - Psych Note Date seen by psych provider: 04/11/20 Time seen by psych provider: 14:00 Psych Note: [id number] Re-eval Patient was re-evaluated in the ED. She reports feeling well and wanting to go home. She denies suicidal ideations, plan, and intent. She demonstrates future forward goal oriented thinking as she talks about staying with in-laws and working to get her own place with her . Patient reports she is able to follow up with [facility] for medication management within 14 days. [id number] Collateral: Dar, spouse, Attempted to call patients spouse, Dar, to discuss plan of care if patient is discharged. No answer at this time. [id number] attempted to call patients again; no answer at this time [id number] called spouse, Dar Yes, able to get to [facility] within 14 days for medication follow up. Moving in with his parents due to stress in the home with her family. Patient, , his mother, and his stepfather will be in the home. He feels as if she will not be as stressed in the new environment. He feels safe picking up patient and taking her home today. He agrees to be part of discharge plan of care. He is planning to lease picker patient when she calls, will take her to [facility] to lease picker her cell phone, and take her home. IVC Criteria per [place] GS 122C Dangerous to others Within the relevant past the individual YES has inflicted or attempted to inflict or threatened to inflict serious bodily harm on another Passive HI towards sister AND No that there is a reasonable probability that this conduct will be repeated as there is an absence of supervision or structure to prevent. Patient made homicidal comment that was passive (ie no plans means or intent). Denies current HI, plan, and intent OR No has acted in such a way as to create a substantial risk of serious bodily harm to another AND No that there is a reasonable probability that this conduct will be repeated as there is an absence of supervision or structure to prevent. OR No has engaged in extreme destruction of property AND NO that there is a reasonable probability that this conduct will be repeated as there is an absence of supervision or structure to prevent. Previous episodes of dangerousness to others, when applicable, may be considered when determining reasonable probability of future dangerous conduct. Clear, cogent, and convincing evidence that an individual has committed a homicide in the relevant past is prima facie evidence of dangerousness to others. Dangerous to self Within the relevant past the individual has done any of the following: acted in such a way as to show ALL of the following: No The individual would be unable without care, supervision, and the continued assistance of others not otherwise available, to exercise self- control, judgment, and discretion in the conduct of the individual's daily responsibilities and social relations or to satisfy the individual's need for nourishment, personal or medical care, alf, or self-protection and safety. AND No There is a reasonable probability of the individual suffering serious physical debilitation within the near future unless adequate treatment is given. A showing of behavior that is grossly irrational, of actions that the individual is unable to control, of behavior that is grossly inappropriate to the situation, or of other evidence of severely impaired insight and judgment shall create a prima facie inference that the individual is unable to care for himself or herself. OR YES has attempted suicide or threatened suicide She intentionally cut wrists and attempted to harm self in the ED AND No that there is a reasonable probability of suicide unless adequate treatment is given as there is an absence of supervision or structure to prevent suicide of patient who has made an attempt, serious gesture or threat. Mood has improved while in the ED; mediation changes have taken place; she denies SI, plan, and intent; demonstrates future forward goal oriented thinking as she talks about wanting to get her own place with her in the future OR No has mutilated himself or herself or attempted to mutilate himself or herself AND No that there is a reasonable probability of serious self-mutilation unless adequate treatment is given as there is an absence of supervision or structure to prevent. NOTE: Previous episodes of dangerousness to self, when applicable, may be considered when determining reasonable probability of physical debilitation, suicide, or self-mutilation. Medication recommendations per [facility]'s contracted psychiatric are as follows: Zyprexa 2.5mg twice daily Depakote 500mg twice daily Cogentin 1mg daily Impression/ Plan: Patient is cleared from acute psychiatric services. She is recommended to rescind IVC. IVC has been rescinded and placed in patients chart. Patient was admitted due to suicidal and homicidal ideations, however has been stabilized in the ED. Medication management took place and patient denies suicidal and homicidal ideation, plan, and intent. She has a plan to move in with and his family to not be in the stressful environment of her home. Patient demonstrates future forward goal oriented thinking as she talks about moving in with her in-laws and planning to get her own place with her . Her daughter, Zayda, and agree to be a part of her plan of care. plans to lease picker patient today and bring her home. He feels patient is safe to go home and agrees she will be able to follow up with medication management provider at [facility] within 14 days. Patient was given resources for the community for outpatient care, detox and substance use, and mobile crisis. She was recommended if symptoms return or worsen to go to her provider, call mobile crisis, or return to the ED. Dr. Dove was consulted to care management of this patient; attending physicians in agreement with recommendations and disposition. Case management: [id number] contacted [facility] to inform them of IVC rescinded
== END 2020-04-11 17:27 | disposition home or self-care (01) ==
LOC: ER 23:29
DX: U07.1 COVID-19 (principal); R45.851 Suicidal ideations; S61.512A Laceration without foreign body of left wrist, initial encounter; S61.511A Laceration without foreign body of right wrist, initial encounter; X78.1XXA Intentional self-harm by knife, initial encounter; Y92.009 Unspecified place in unspecified non-institutional (private) residence as the place of occurrence of the external cause; F17.200 Nicotine dependence, unspecified, uncomplicated; Z88.6 Allergy status to analgesic agent; Z88.0 Allergy status to penicillin; Z23 Encounter for immunization
CPT/HCPCS: 93005; 99285; 96372; 90471; 36415; 87086; 80307 ×4; 84703; 85025; 0241U ×4; 87088; 80053; 81001; 80164; 87186; 71045; 90715; 93010; 12002; J3490 ×21; J1200; S0119; J2060; J3486; C9803